=== PATIENT | male | born 1985 | race Caucasian/White ===

== ENCOUNTER → 2018-01-07 | Outpatient (CLI) | payer BC ==
[~2018-01-07] MED LIST: AMITRIPTYLINE H25 M2 PO; DICLOFENAC SOD50 M1 PO; HYDROCODONE-AP1 EAC6 PO; LISINOPRIL10 MG PO; LYRICA 50 MG50 MG PO; MOBIC15 MG PO; NAPROSYN500 MG PO; NEURONTIN 300300 M1 PO; NORCO 5-325 TA1 EACH PO; RANITIDINE 150150 M1 PO; TRAMADOL 50 MG50 MG PO; ZANAFLEX4 MG PO
--- NOTE | 2018-01-15 15:40 | PAINCON ---
[facility] [address] [place] [address] PAIN MANAGEMENT CONSULTATION Name: DEXTER GOODMAN Room: [facility]#: [id number] Admission: 01/07/18 Attend Phys: Brittanie Walden MD Discharge: Date of : 86 Report #: [id number] THIS REPORT FOR: //name// CC: Brittanie Rose DO DATE OF SERVICE: 01/07/2018 PRIMARY CARE PHYSICIAN: Darin Rose DO. CHIEF COMPLAINT: Low back, bilateral hip pain, left is worse than right. FOLLOWUP HISTORY: The patient is a 32-year-old gentleman who has a history of low back pain involving the lower extremities with paresthesia. He has been seen by Dr. Yo Nolan. This is my first visit with the gentleman. He is having pain that has been problematic for over the last year. Noted some worsening of his pain while he was doing some yard work that resolved. He has been to the Emergency Room in the past because of this. He has had imaging, which indicated that he has lumbar radiculopathy. He tried conservative treatment in the past. He has undergone epidural steroid injections and found them beneficial. At this juncture his pain has returned. He rates it as a 7/10. Over the past 3 weeks, it has escalated. He has been trying conservative medications such as Naprosyn 500 mg b.i.d., gabapentin has also been used in the past. He has undergone physical therapy in the past. Continues to do stretching exercises. Denies any bowel or bladder changes, which are significant. ALLERGIES: PENICILLIN. CURRENT MEDICATIONS: The patient has used diclofenac 50 mg, has used gabapentin 1 p.o. and then I titrated the dose lisinopril 10 mg, tramadol 50 mg 1-2 tabs p.o. q. 8 hours p.r.n. PAST MEDICAL HISTORY: Chronic back pain, hypertension. PAST SURGICAL HISTORY: [place] teeth removal and adenoidectomy. SOCIAL HISTORY: The patient denies use of tobacco. Admits to approximately 1 alcoholic beverage per week. Works as a regional planner. He is working at this juncture. He is , has a . REVIEW OF SYSTEMS: Questionnaire indicates fatigue, weakness, frequent and recurrent headaches, wears eye glasses, joint stiffness and swelling, muscle pain and cramping in the back, difficulty ambulating when pain is present with. A 14-point review point review of systems. Pain impact score 48/70 indicating [facility] [address] [place] [address] PAIN MANAGEMENT CONSULTATION Name: DETXER GOODMAN Room: [facility]#: [id number] Admission: 01/07/18 Attend Phys: Brittanie Walden MD Discharge: Date of : 86 Report #: [id number] moderate to severe interference with daily activities. CT dated 05/18/2017 revealed mild disk bulge at L3 through S1. Spinal canal and neural foramen appear adequate. There is a mild neural foraminal narrowing at L3, L4 and S1. PAIN CLINIC ASSESSMENT: 1. No history of osteoarthritis or rheumatoid arthritis. 2. Height 5 feet 10 inches, weight 209 pounds, BMI is 30. 3. VITAL SIGNS: Blood pressure 136/85, heart rate 72, respiratory rate 16, room air saturation 98%, temperature 98.4. 4. Pain intensity 7/10. 5. Fall risk. The patient has not fallen in the last 3 months. 6. The patient is on blood thinners. The patient is not on a blood thinner. 7. History of hypertension. The patient is not being treated for hypertension. 8. Opioid therapy greater than 6 weeks. The patient is not on opioid therapies. 9. Risk assessment tool. 10. Functional assessment tool. 11. Recreational drug use. The patient denies recreational drug use. 12. Tobacco use. The patient denies use of tobacco. 13. Alcohol use. The patient denies use of alcoholic beverages. PHYSICAL EXAMINATION: GENERAL: The patient is a well-developed white male, appears his stated age. Orientation: The patient is alert and oriented x 3. Affect, the patient's affect is appropriate. HEENT: Normocephalic, atraumatic. Extraocular eye muscles intact. Sclerae are normal. Hearing is within normal limits. Mucous membranes are moist. NECK: Cervical/neck without evidence of bruits or adenopathy. Good range of motion. HEART: Regular rate without murmurs. LUNGS: Clear to auscultation without wheezing, rhonchi or rales. ABDOMEN: Nontender. MUSCULOSKELETAL: Within normal limits without significant scoliosis, kyphosis or lordosis. EXTREMITIES: No clubbing, cyanosis or edema. MUSCULOSKELETAL: Upper extremities. Muscle strength is judged to be 5/5 with normal touch and dermatomal sensation in the upper extremities. Deep tendon reflexes are 1+ at the biceps. Lower extremity negative HARDIK test, positive low back pain with palpate the patient in the low back, lumbar area. No clonus is evident. Walks with some antalgic gait favoring his lower extremity. IMPRESSION: 1. History of symptomatic lumbar radiculopathy. 2. Displacement of lumbar intervertebral disk with radiculopathy. 3. Lumbosacral spondylosis with radiculopathy. [address] [place] [address] PAIN MANAGEMENT CONSULTATION Name: DEXTER GOODMAN Room: [facility]#: [id number] Admission: 01/07/18 Attend Phys: Brittanie Walden MD Discharge: Date of : 86 Report #: [id number] 4. Chronic intractable pain. RECOMMENDATIONS: We discussed the treatment options with the patient. Risks and benefits of an epidural steroid injection were again discussed. Possible complications were reviewed. The patient rates his pain as a 7/10. At this juncture, he would like to proceed with an epidural steroid injection. Risks and benefits were again reviewed. Possible complications, which could include but are not limited to infection, headache, bleeding, nerve trauma, spinal headache, increased muscle soreness, no improvement in pain, worsening of pain were discussed. PROCEDURE NOTE: The patient was placed in the prone position in the procedure room on the fluoroscopy table. His back was sterilely prepped with Betadine. A 0.25% bupivacaine was infiltrated in this area. The target area was identified using fluoroscopy, anterior, posterior as well as lateral viewing. After this area had been identified, 0.25% bupivacaine was infiltrated. A 17-gauge Tuohy with loss of resistance technique was used to gain access to the epidural space. There was no CSF, heme or paresthesia. Total of 80 mg Depo-Medrol, 40 mg triamcinolone and 2 mL of 0.25% bupivacaine was injected. The patient tolerated the procedure well. There were no complications. He remained in the Pain Clinic for an appropriate amount of time. A total of 6 seconds fluoroscopy time was used. Pain decreased from 7 to 3 at the time of departure. He will follow up in the future as needed. We would like to thank you for letting us participate in his care. We hope he continues to improve. <ELECTRONICALLY SIGNED> By: Brittanie Walden MD 01/15/18 1540 [id number] 1241N. Yoni Walden MD /PMT
== END | disposition home or self-care (01) ==
LOC: M.PC 03:03
DX: M51.16 Intervertebral disc disorders with radiculopathy, lumbar region (principal); G89.29 Other chronic pain; M47.27 Other spondylosis with radiculopathy, lumbosacral region; I10 Essential (primary) hypertension; Z88.0 Allergy status to penicillin; Z98.890 Other specified postprocedural states; Z79.899 Other long term (current) drug therapy; Z79.891 Long term (current) use of opiate analgesic

== ENCOUNTER → 2018-02-20 | Outpatient (CLI) | payer BC ==
--- NOTE | 2018-03-19 13:42 | PAINCON ---
[address] [address] PAIN MANAGEMENT CONSULTATION Name: DEXTER GOODMAN [id number] Admission: 02/20/18 Attend Phys: Brittanie Walden MD Discharge: Date of : 86 Report #: [id number] THIS REPORT FOR: //name// CC: Brittanie Rose DATE OF SERVICE: 02/20/2018 FOLLOWUP COMPLAINT: Low back pain with some pain down into both hips. FOLLOWUP HISTORY: The patient is a 33-year-old gentleman who has been seen in the pain clinic in the past because of lumbar radiculopathy. He has undergone epidural steroid injections and gleaned benefits from these. At his last injection a few months ago. He noted significant improvement in his pain and discomfort. At this juncture, he has noted a return of his pain. As you may recall, he travels a lot. He finds that the pain is most problematic when he is awaiting on the tarmac, in an airplane. Also significant amounts of driving can exacerbate his pain and discomfort. He received 100% relief after the last injection for 2 weeks. He denies any new activity, but did note an abrupt return of his pain. He finds that the [place] 5/325 one p.o. p.r.n. has been helpful. He has been walking slowly because of this pain. It has impacted his lability to remain gainfully employed. He rates his pain as a 7/10 at this juncture. Denies any new problems with bowel or bladder function. Still finds that he is mentally sharp. Continues with stretching exercises. He already has undergone physical therapy as you recall. ALLERGIES: PENICILLIN. CURRENT MEDICATIONS: Diclofenac 50 mg, gabapentin 300 mg 1 p.o. and has titrated up to a higher level. Lisinopril 10 mg, tramadol 50 mg 1-2 tablets p.o. every 8 hours p.r.n. PAIN CLINIC ASSESSMENT: 1. The patient has no history of osteoarthritis or rheumatoid arthritis. 2. Height 5 feet 10 inches, weight 199 pounds, BMI is 28. 3. Vital signs, blood pressure 121/71, heart rate 63, respiratory rate 16, room air saturation 97%, temperature 98.6. 4. Pain intensity 7/10. 5. Fall risk. The patient has not fallen in the last 3 months. 6. Blood thinner. The patient is not on a blood thinning agent. 7. History of hypertension. The patient has not been treated for hypertension. 8. Opioid therapy greater than 6 weeks. The patient is not on current opioid regimen. 9. Risk assessment tool. 10. Functional assessment tool. 11. Recreational drug use. The patient [place] [address] PAIN MANAGEMENT CONSULTATION Name: MAXINEDEXTER Jacqueline Room: [facility]#: [id number] Admission: 02/20/18 Attend Phys: Brittanie Walden MD Discharge: Date of : 86 Report #: [id number] 12. Tobacco use. The patient denies use of tobacco. 13. Alcohol. The patient denies use of alcoholic beverages. PHYSICAL EXAMINATION: GENERAL: The patient is a well-developed white male. He appears his stated age. He is alert and oriented x 3. His affect is appropriate. Speech is smooth and fluent. HEAD, EYES, EARS, NOSE, AND THROAT: Normocephalic, atraumatic. Extraocular eye muscles intact. Sclerae nonicteric. Hearing is within normal limits. Mucous membranes are moist. NECK: Without adenopathy or bruits. Good range of motion. HEART: Regular rate, normal S1, S2. LUNGS: Clear to auscultation without rhonchi or rales. ABDOMEN: Nontender. MUSCULOSKELETAL: Without significant scoliosis, kyphosis or lordosis. EXTREMITIES: Upper extremities within normal limits. 5/5 muscle strength with no sensory changes. Muscle strength is judged to be 5/5. Lower extremity, the patient has some pain and discomfort in the lower extremities with pain that is radiating down into the low back area and into his hips bilaterally, particularly in the left L5-S1 distribution. Deep tendon reflexes are +1 at the patellar reflexes. Lower extremity HARDIK test negative, palpable pain in the low back area. Pain in the lumbar area in the L5-S1 paraspinous muscles. No clonus evident. The patient continues and does walk with an antalgic gait favoring his lower extremity because of pain and discomfort in the left leg. IMPRESSION: 1. Symptomatic lumbar radiculopathy. 2. Displacement of lumbar intervertebral disk with radiculopathy. 3. Lumbosacral spondylosis with radiculopathy. 4. Chronic intractable pain. RECOMMENDATIONS: We discussed treatment options with the patient. They include an epidural steroid injection. The possible complication of the procedure include, but are not limited to infection, increased muscle soreness, headache, bleeding, worsening of pain, no improvement in pain, paralysis. The patient feels overall that he is getting plain gleaned significant improvement in the past and continues to travel. He would like to undergo another epidural steroid injection at this juncture. PROCEDURE NOTE: The patient was taken to the procedure room. He was assisted in getting on the examination table. He was placed in the prone position. His back was sterilely prepped with a Betadine solution. 0.25% bupivacaine was infiltrated. Fluoroscopy using the anterior, posterior as well as a lateral approach was used to identify the appropriate placement of the epidural injection. In the left paraspinous area at L5-S1, 0.25% bupivacaine was infiltrated. A 17-gauge Tuohy with loss [place] [address] PAIN MANAGEMENT CONSULTATION Name: MAXINEDEXTER Jacqueline Room: [facility]#: [id number] Admission: 02/20/18 Attend Phys: Brittanie Walden MD Discharge: Date of : 86 Report #: [id number] gain access to the epidural space. There was no CSF, heme or paresthesia. A total of 80 mg Depo-Medrol, 40 mg triamcinolone and 2 mL of 0.25% bupivacaine was injected. The patient tolerated the procedure well. There were no complications. He remained in the pain clinic for an appropriate amount of time. He will follow up in the future as needed. We would like to thank you for letting us participate in his care. Less than 10 seconds fluoroscopy time was used. We would like to thank you for letting us to participate in his care. A script for meloxicam 15 mg 1 p.o. daily and hydrocodone 5/325 one p.o. every 4 to 6 hours total of 45 tablets were released. We would like to thank you for letting us to participate in his care. We hope he continues to improve. <ELECTRONICALLY SIGNED> By: Brittanie Walden MD 03/19/18 1342 0809 1345N. Yoni Walden MD /PMT
== END | disposition home or self-care (01) ==
LOC: M.PC 04:05
DX: M51.16 Intervertebral disc disorders with radiculopathy, lumbar region (principal); M47.27 Other spondylosis with radiculopathy, lumbosacral region; G89.29 Other chronic pain; Z88.0 Allergy status to penicillin; Z79.899 Other long term (current) drug therapy; Z98.890 Other specified postprocedural states; Z79.891 Long term (current) use of opiate analgesic

== ENCOUNTER → 2018-04-03 | Outpatient (CLI) | payer BC ==
--- NOTE | 2018-04-03 15:18 | PAINCON ---
[address] [address] PAIN MANAGEMENT CONSULTATION Name: DEXTER GOODMAN [id number] Admission: 04/03/18 Attend Phys: Brittanie Walden MD Discharge: Date of : 86 Report #: [id number] THIS REPORT FOR: //name// CC: Brittanie Rose DATE OF SERVICE: 04/03/2018 FOLLOWUP COMPLAINT: Continued back and bilateral hip pain. FOLLOWUP HISTORY: The patient is a 33-year-old gentleman who has been seen in the pain clinic for a number of times because of pain involving his low back as well as his hips. He underwent an epidural steroid injection. He gleaned about 100% relief after the injection. The relief started to wane after about 3-4 days. At this juncture, he has continued with some pain relief. He feels it is about 20% better. He continues to have pain. As you recall, he has undergone physical therapy. He has tried a number of nonsteroidal anti-inflammatory medications. He has tried gabapentin. He feels that the [place] medication is helpful, but has noted its shortcomings. He notes that the medication initially were let me know lasting about 4-6 hours, now it is not as long lasting. He feels that the meloxicam is helpful. Sometimes has some discomfort with his stomach. He has had no real problems with GI complaints. He would like to continue with the hydrocodone. He would like other treatment options. The patient continues to travel in his job. He went to [place]. Things went reasonably well during that visit. He notes that prolonged walking, sitting, standing, going from a sitting to a standing, changes in temperature, bending and lifting can worsen his pain and discomfort. Continues to use his medications as well as modalities such as heat, cold, rest to help decrease the discomfort. ALLERGIES: PENICILLIN. CURRENT MEDICATIONS: Mobic 15 mg 1 p.o. daily. Gabapentin, has been used in the past. Lisinopril 10 mg. Tramadol 50 mg 1-2 tablets has been used in the past. Currently, just using hydrocodone and meloxicam. PAIN CLINIC ASSESSMENT: 1. The patient has no history of osteoarthritis or rheumatoid arthritis. 2. Height 5 feet 10 inches, weight 192 pounds, BMI is 27. 3. VITAL SIGNS: Blood pressure 120/87, heart rate 79, respiratory rate 16, room air saturation 98.4. 4. Pain score 7/10. 5. Fall risk. The patient has not fallen in the last 3 months. 6. Blood thinner. The patient is not on a blood thinning agent. 7. History of hypertension. The patient is not being treated for hypertension. 8. Opioid therapy greater than 6 weeks. The patient is [place] [address] PAIN MANAGEMENT CONSULTATION Name: DEXTER GOODMAN Room: [facility]#: [id number] Admission: 04/03/18 Attend Phys: Brittanie Walden MD Discharge: Date of : 86 Report #: [id number] regimen for greater than 6 weeks. 9. Risk assessment tool. 10. Functional assessment tool. 11. Recreational drug use. The patient denies use of recreational drugs. 12. Tobacco: The patient denies use of tobacco. 13. Alcohol: The patient denies use of alcoholic beverages. PHYSICAL EXAMINATION: GENERAL: The patient is a well-developed white male, appears his stated age. He is alert and oriented x 3. His affect is appropriate. Speech is smooth and fluent. HEENT: Normocephalic, atraumatic. Extraocular eye muscles are intact. Sclerae nonicteric. Hearing is within normal limits. Mucous membranes are moist. NECK: Without adenopathy or bruits. Good range of motion. HEART: Regular rate, normal S1, S2. LUNGS: Clear to auscultation without rhonchi or rales. ABDOMEN: Nontender. MUSCULOSKELETAL: Without significant scoliosis, kyphosis or lordosis. EXTREMITIES: Upper extremity strength is judged to be 5/5 for the major muscle groups without sensory changes. Muscle bulk symmetrical lower extremity. The patient has pain and discomfort in the lower portion of his back that continues to radiate down the lower portion of his back and down into his hips bilaterally. This is in the L5-S1 distribution on the left. Has some soreness in the area of the L5-S1 paraspinous muscles. ASSESSMENT: 1. Chronic lumbar radicular pain. 2. Displacement of lumbar intervertebral dis with radiculopathy. 3. Lumbosacral spondylosis with radiculopathy. 4. Chronic intractable pain. RECOMMENDATIONS: We discussed treatment options with the patient. At this juncture, we will continue with the meloxicam. He will take this medication as prescribed. If he notes some increased problems with GI complaints, he will stop taking the medication. We will also consider Lyrica 50 mg 1 p.o. t.i.d. The patient has some consternation in taking it. This consternation is from the possibility of weight gain. He states his is taking it and notes some weight gain. I think at this point it would be reasonable for him to give it a try and note its efficacy. The patient's hydrocodone will be provided 5 mg 1 p.o. b.i.d. We had a long talk with the patient regarding the use of opioid medications, the possibility of addiction as well as the loss of effectiveness of opioid medications over time due to tolerance. At this juncture, he feels that that it would be reasonable to try the medication, he would like to. He will call us if he has any problems with the medications. A script has been [place] [address] PAIN MANAGEMENT CONSULTATION Name: DEXTER GOODMAN Room: [facility]#: [id number] Admission: 04/03/18 Attend Phys: Brittanie Walden MD Discharge: Date of : 86 Report #: [id number] We would like to thank you for letting us participate in his care. We hope he continues to improve. <ELECTRONICALLY SIGNED> By: Brittanie Walden MD 04/03/18 1518 1006 1212N. Yoni Walden MD /nt
== END ==
LOC: M.PC 03:25
DX: M47.27 Other spondylosis with radiculopathy, lumbosacral region (principal); M51.16 Intervertebral disc disorders with radiculopathy, lumbar region; G89.4 Chronic pain syndrome; M54.5 Low back pain

== ENCOUNTER → 2018-05-08 | Outpatient (CLI) | payer BC ==
--- NOTE | 2018-05-23 08:37 | PAINCON ---
[address] [address] PAIN MANAGEMENT CONSULTATION Name: DEXTER GOODMAN Room: [facility]#: [id number] Admission: 05/08/18 Attend Phys: Brittanie Walden MD Discharge: Date of : 86 Report #: [id number] THIS REPORT FOR: //name// CC: Brittanie Rose DATE OF SERVICE: 05/08/2018 FOLLOWUP COMPLAINT: Here for medication renewal. FOLLOWUP HISTORY: The patient is a 33-year-old gentleman who has been followed in the Pain Clinic because of lumbar radicular pain. He has undergone epidural steroid injections. He feels that things are going reasonably well at this juncture. He still has some pain and discomfort and has returned to the Pain Clinic for evaluation and renewal of his medications. He has pain in his low back as well as into both of his hips. He rates his pain as a 6/10 at this juncture. Pain continues to go down into his left leg. He feels that the [place], [place] and Lyrica medications are helpful. He would like to have his medications renewed. Denies any complications from them. He still has pain and discomfort when he sits for a prolonged period of time. As you recall, he travels quite a bit for his job. ALLERGIES: PENICILLIN. CURRENT MEDICATIONS: Mobic 15 mg one p.o. daily, gabapentin has been used in the past, hydrocodone 5/325 one p.o. q. 8 hours p.r.n., pregabalin 50 mg one p.o. t.i.d., amitriptyline 25 mg two tablets at bedtime. PAIN CLINIC ASSESSMENT: 1. The patient does not have a history of osteoarthritis or rheumatoid arthritis. 2. Height 5 feet 10 inches, weight 191 pounds, BMI is 27.4. 3. Vital signs: Blood pressure 133/82, heart rate 72, respiratory rate 16, room air saturation 95%, temperature 98.7. 4. Pain intensity: 03/16. 5. Fall risk: The patient has not fallen in the last 3 months. 6. Blood thinner: The patient is on a blood thinning medication. 7. Hypertension: The patient is not being treated for hypertension. 8. Opioid greater than 6 weeks: The patient has been given a script for opioid medication, 5/325 one tablet b.i.d. 9. Risk assessment tool. 10. Functional assessment tool. 11. Recreational drug use: The patient denies use of recreational drugs. 12. Tobacco: The patient denies use of tobacco. 13. Alcohol: The patient denies [place] [address] PAIN MANAGEMENT CONSULTATION Name: DEXTER GOODMAN Room: [facility]#: [id number] Admission: 05/08/18 Attend Phys: Brittanie Walden MD Discharge: Date of : 86 Report #: [id number] PHYSICAL EXAMINATION: GENERAL: The patient is a well-developed, well-nourished white male. He appears his stated age. He is alert and oriented x 3. His affect is appropriate. Speech is smooth and fluent. HEENT: Normocephalic, atraumatic. Extraocular eye muscles intact. Sclerae nonicteric. Hearing within normal limits. Mucous membranes are moist. NECK: Without adenopathy or bruits. Good range of motion. HEART: Regular rate. Normal S1, S2. LUNGS: Clear to auscultation, without rhonchi or rales. ABDOMEN: Nontender. MUSCULOSKELETAL: Without scoliosis, kyphosis, or lordosis. EXTREMITIES: Upper extremity muscle strength is judged to be 5/5 for the major muscle groups with symmetry and without sensory change. Muscle bulk is normal. Lower extremity muscle strength 5/5 of the major muscle groups in the lower extremities. The patient has some pain and discomfort, which continues to be present in the L5-S1 distribution with some soreness. ASSESSMENT: 1. Chronic lumbar radicular pain, stabilized after epidural steroid injection. 2. Displacement of lumbar intervertebral disc with radiculopathy. 3. Lumbosacral spondylosis with radiculopathy. 4. Chronic intractable pain. RECOMMENDATIONS: We discussed treatment options with the patient. Risks and benefits of medications have been discussed. We will continue with his use of hydrocodone 5 mg p.o. b.i.d. He will also be given a script for amitriptyline 25 mg one p.o. at bedtime and increase to two p.o. at bedtime as needed, meloxicam 15 mg one p.o. daily, pregabalin 50 mg one p.o. t.i.d. The patient will call us if he has any concerns. We would like to thank you for letting us participate in his care. We hope he continues to improve. <ELECTRONICALLY SIGNED> By: Brittanie Walden MD 05/23/18 0837 1536 0039N. Yoni Walden MD /nt
== END ==
LOC: M.PC 02:12
DX: M47.26 Other spondylosis with radiculopathy, lumbar region (principal); M51.16 Intervertebral disc disorders with radiculopathy, lumbar region; G89.4 Chronic pain syndrome; Z79.899 Other long term (current) drug therapy

== ENCOUNTER → 2018-06-12 | Outpatient (CLI) | payer BC, OTHER ==
--- NOTE | 2018-06-13 17:38 | PAINCON ---
[address] [address] PAIN MANAGEMENT CONSULTATION Name: DEXTER GOODMAN Room: [facility]#: [id number] Admission: 06/12/18 Attend Phys: Brittanie Walden MD Discharge: Date of : 86 Report #: [id number] THIS REPORT FOR: //name// CC: Brittanie Rose DATE OF SERVICE: 06/12/2018 FOLLOWUP HISTORY: The patient is a 33-year-old gentleman who has been followed in the Pain Clinic. As you recall, he has some lumbar radicular pain. He has undergone epidural steroid injections in the past. These have been successful. He still travels quite a bit. He rides plane from one appointment to the next. He has run out of his pain medications over the last week. He noticed that his pain level increased as a result of this. He has returned today for renewal of his medications. He is not having any complication from the medication. He feels that he is able to perform his job at a higher level with less pain and discomfort. He rates his pain as a 6/10. He has noted some decreased effectiveness of the medications after 4-5 hours of use. He notes that sitting, standing, walking, cold temperatures and activities can exacerbate the pain; whereas, heat and medications are helpful. He would like to have his medications renewed. He keeps his medications in a guarded area. Overall, he feels that things are going reasonably well. ALLERGIES: PENICILLIN. CURRENT MEDICATIONS: Mobic 15 mg daily, gabapentin use in the past, hydrocodone 5/325s one p.o. q. eight hours, Pregabalin 50 mg one p.o. t.i.d., amitriptyline 25 mg at bedtime. PAIN CLINIC ASSESSMENT: 1. The patient does not have a history of osteoarthritis or rheumatoid arthritis. 2. Height 5 feet 10 inches, weight 192 pounds, BMI is 27.6. 3. Vital Signs: Blood pressure is 119/74, heart rate 80, respiratory rate 16, room air saturation 99%, temperature 98.4 4. Pain intensity: 03/16. 5. Fall risk: The patient has not fallen in the last 3 months. 6. Blood thinner: The patient is not on a blood thinning medication. 7. Hypertension: The patient is not being treated for hypertension. 8. Opioid therapy greater than 6 weeks: The patient has received medication from the Pain Clinic. 9. Risk assessment tool. 10. Functional assessment tool. 11. Recreational drug use: The patient denies use of recreational drugs. 12. Tobacco: The patient denies use of tobacco. 13. Alcohol: The patient [place] [address] PAIN MANAGEMENT CONSULTATION Name: DEXTER GOODMAN Room: [facility]#: [id number] Admission: 06/12/18 Attend Phys: Brittanie Walden MD Discharge: Date of : 86 Report #: [id number] PHYSICAL EXAMINATION: GENERAL: The patient is a well-developed, well-nourished white male. He appears his stated age. He is alert and oriented x 3. His speech is fluent. Affect is appropriate. HEENT: Normocephalic, atraumatic. Extraocular eye muscles intact. Sclerae nonicteric. Mucous membranes are moist. NECK: Without adenopathy, bruits, or JVD. Good range of motion. HEART: Regular rate. Normal S1, S2. LUNGS: Clear to auscultation, without rhonchi or rales. ABDOMEN: Nontender, without organomegaly. MUSCULOSKELETAL: Without scoliosis, kyphosis, or lordosis. Muscle strength in the upper extremity judged to be 5/5 for the major muscle groups. Lower extremity muscle strength 5/5 for the major muscle groups. The patient has pain and discomfort, which radiates down the L5-S1 distribution when it is present and notes some soreness in this area. ASSESSMENT: 1. Chronic lumbar radicular pain, improves with epidural steroid injection, but continues to wax and wane. 2. Displacement of the lumbar intervertebral disc with radiculopathy. 3. Lumbosacral spondylosis with radiculopathy. 4. Chronic intractable pain. RECOMMENDATIONS: We discussed treatment options with the patient. We will continue with his current medical regimen. He feels that the medications are helpful, enable him to continue being gainfully employed. He does travel quite a bit. He finds that this medication is helpful, particularly when he has to ride on planes and do quite a bit of traveling. He has had no complication from the medications. He has noted some decreased efficacy of the medications after 4-5 hours. We discussed the possible problems with opioid medications. They could include addiction as well as long-term use can develop tolerance. At this juncture, the patient feels that things are going reasonably well and would like to continue with his medications. A script for his medications of hydrocodone, Lyrica, Elavil and Mobic have been written. We would like to thank you for letting us participate in his care. We hope he continues to improve. <ELECTRONICALLY SIGNED> By: Brittanie Walden MD 06/13/18 1738 [id number]. MD cathryn Manzo
== END ==
LOC: M.PC 06-03 04:27
DX: M47.27 Other spondylosis with radiculopathy, lumbosacral region (principal); M51.16 Intervertebral disc disorders with radiculopathy, lumbar region; G89.4 Chronic pain syndrome; Z79.899 Other long term (current) drug therapy

== ENCOUNTER → 2018-07-10 | Outpatient (CLI) | payer BC, OTHER ==
--- NOTE | 2018-07-21 10:00 | PAINCON ---
[facility] [address] [place] [address] PAIN MANAGEMENT CONSULTATION Name: DEXTER GOODMAN Room: [facility]#: [id number] Admission: 07/10/18 Attend Phys: Brittanie Walden MD Discharge: Date of : 86 Report #: [id number] THIS REPORT FOR: //name// CC: Brittanie Rose DATE OF SERVICE: 07/10/2018 REASON FOR FOLLOWUP: Medication renewal. ____. FOLLOWUP HISTORY: The patient is a 33-year-old gentleman who has been followed in the pain clinic because of chronic pain. As you recall, he has lumbar radiculopathy. He finds that his medications have been helpful. He feels that the morphine and the hydrocodone medication is not lasting as long. He rates it as about a 2.5-3 hour duration. Originally, it was 4-5. He has changed jobs. He is no longer working where he travels. He is standing at home more. 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 He has had a bad couple of weeks. He has noted some upset stomach with use of the Lyrica. Feels that the amitriptyline medication continues to be somewhat helpful and hydrocodone remains efficacious. Continues to use of meloxicam. Overall, things are going reasonably well. ALLERGIES: PENICILLIN. CURRENT MEDICATIONS: Mobic 15 mg daily, Lyrica 50 mg t.i.d., hydrocodone 5/325 one p.o. b.i.d. and Elavil 25 mg at bedtime. PAIN CLINIC ASSESSMENT/PQRS: 1. The patient does not have a history of osteoarthritis or rheumatoid arthritis. 2. Height 5 feet 10 inches, weight 190 pounds and BMI 27. 3. VITAL SIGNS: Blood pressure 143/89, heart rate 89, respiratory rate 16, room air saturation 96% and temperature 98.7 4. Pain score is 7/10. 5. Fall risk. The patient has not fallen in the last 3 months. 6. Blood thinner. The patient is not on a blood thinning medication. 7. Hypertension. The patient has not been treated for hypertension. 8. Opioid therapy greater than 6 weeks. The patient receives medications from one source, the pain clinic. 9. Risk assessment tool. 10. Functional assessment tool, low for use of opioid medication. 11. Recreational drug use. The patient denies. 12. Tobacco: The patient denies use of tobacco. 13. Alcohol: The patient denies use of alcoholic beverages. PHYSICAL EXAMINATION: [place] [address] [place] [address] PAIN MANAGEMENT CONSULTATION Name: DEXTER GOODMAN Room: [facility]#: [id number] Admission: 07/10/18 Attend Phys: Brittanie Walden MD Discharge: Date of : 86 Report #: [id number] GENERAL: The patient is a well-developed, well-nourished white male. Appears his stated age. He is alert and oriented x 3. His affect is appropriate. Speech is fluent. HEENT: Normocephalic, atraumatic. Extraocular eye muscles intact. Sclerae nonicteric. Mucous membranes are moist. NECK: Without adenopathy, bruits, or JVD. Good range of motion. HEART: Regular rate. S1, S2. LUNGS: Clear to auscultation without rhonchi or rales. ABDOMEN: Nontender, without organomegaly. Bowel sounds present. MUSCULOSKELETAL: Without scoliosis, kyphosis or lordosis. Upper extremity muscle strength is judged to be 5/5 for the major muscle groups in the upper extremity with symmetry. Low back: The patient has pain and discomfort in low back area. Has some pain that radiates down into the L5-S1 dermatomal distribution. Notes some soreness in this area. ASSESSMENT: 1. Chronic lumbar radicular pain improved with epidural steroid injection and continues to wax and wane depending on the weather. 2. Displacement of lumbar intervertebral disk with radiculopathy. 3. Lumbosacral spondylosis with radiculopathy. 4. Chronic intractable pain. RECOMMENDATIONS: We discussed the treatment options with the patient. They include use of opioid medications. He states that he is noting a decrease length of time for pain relief using hydrocodone. We explained to the patient the problems with opioid medications. Now that they can cause dependency. We also discussed the possible problems with them because of tolerance. The patient has been noted that his pain medicine has no longer last for 5 hours, but now is about 2.5 hours. We explained to him the physiology of this problem. I explained to him that there is no level of opioids of his body while not at some point find enough satisfying. We will have the patient try Gralise instead of Lyrica. We will note that efficacy. Hopefully, finds that this is more beneficial with less GI complaint. We have written his scripts for amitriptyline 25 mg at bedtime, hydrocodone 5/325 b.i.d., Meloxicam 15 mg daily. The patient will try Gralise instead of Lyrica. We would like to thank you for letting us participate in his care. We hope he continues to improve. <ELECTRONICALLY SIGNED> By: Brittanie Walden MD 07/21/18 1000 0 [id number]. Yoni Walden MD /nori
== END ==
LOC: M.PC 04:47
DX: M47.27 Other spondylosis with radiculopathy, lumbosacral region (principal); M51.16 Intervertebral disc disorders with radiculopathy, lumbar region; G89.4 Chronic pain syndrome

== ENCOUNTER → 2018-08-07 | Outpatient (CLI) | payer OTHER ==
--- NOTE | 2018-08-20 16:28 | PAINCON ---
[address] [address] PAIN MANAGEMENT CONSULTATION Name: DEXTER GOODMAN [id number] Admission: 08/07/18 Attend Phys: Brittanie Walden MD Discharge: Date of : 86 Report #: [id number] THIS REPORT FOR: //name// CC: Brittanie Rose DATE OF SERVICE: 08/07/2018 CHIEF COMPLAINT: Low back pain. FOLLOWUP HISTORY: The patient is a 33-year-old gentleman who has been followed in the Pain Clinic because of chronic back pain. He has returned for renewal of his medications. He feels that his pain continues to be problematic. He rates it as a 7/10. He has history of lumbar radiculopathy. He has undergone epidural steroid injections. He states that he is going to see a new back surgeon in the [facility] in a few weeks; this physician is a back specialist, the name he could not recall. He feels that the Mobic medication remains helpful. He tried the Gralise, which is a slow-release gabapentin medication. He is not sure that he noted a significant improvement in that. Given that it did not provide much benefit, he elects to continue with Lyrica. He feels that that medication is somewhat helpful. Overall, he feels that things are going reasonably well. 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 His customer is taking him to [place] for a ball game. He has no complication from the medications. He notes that the hydrocodone medication remains efficacious. It is about 2-4 hours of improvement with use of the medication. ALLERGIES: PENICILLIN. CURRENT MEDICATIONS: Mobic 15 mg, Lyrica 50 mg one p.o. t.i.d., hydrocodone 5/325s one b.i.d., Elavil 25 mg at bedtime. PAIN CLINIC ASSESSMENT/PQRS: 1. The patient does not have a history of osteoarthritis or rheumatoid arthritis. 2. Height 5 feet 10 inches, weight 188 pounds, BMI is 27. 3. Vital signs: Blood pressure 130/70, heart rate 92, respiratory rate 16, room air saturation 97%, temperature 98.3. 4. Pain intensity: 7/10. 5. Fall risk: The patient has not fallen in the last 3 months. 6. Blood thinner: The patient is on a blood thinning medication. 7. Hypertension: The patient has been treated for hypertension in the past but is not at this juncture. 8. Opiates greater than 6 weeks: The patient receives his medication from one source, the Pain Clinic. 9. Risk assessment tool: [place] [address] PAIN MANAGEMENT CONSULTATION Name: DEXTER GOODMAN Room: [facility]#: [id number] Admission: 08/07/18 Attend Phys: Brittanie Walden MD Discharge: Date of : 86 Report #: [id number] 10. Functional assessment tool. 11. Recreational drug use: The patient denies. 12. Tobacco: The patient denies use of tobacco. 13. Alcohol: The patient denies use of alcoholic beverages. PHYSICAL EXAMINATION: GENERAL: The patient is a well-developed, well-nourished white male. He appears his stated age. He is alert and oriented x 3. His affect is appropriate. Speech is fluent. HEENT: Normocephalic, atraumatic. Extraocular eye muscles intact. Sclerae nonicteric. The patient wears glasses. NECK: Without adenopathy, bruits, or JVD. Good range of motion. HEART: Regular rate. S1, S2. LUNGS: Clear to auscultation, without rales or crackles. MUSCULOSKELETAL: Without scoliosis, kyphosis or lordosis. Upper extremity muscle strength judged 5/5 for the major muscle groups in the upper extremity with symmetry. No sensory changes. LOW BACK: The patient has some discomfort in the low back area. He has pain that radiates down into the L5-S1 dermatomal distribution. He notes continued pain in this area for which he takes his medications. ASSESSMENT: 1. Chronic lumbar radicular pain, improved with epidural steroid injections in the past. Pain waxes and wanes. 2. Displacement of lumbar intervertebral disc with radiculopathy. 3. Lumbar spondylosis with radiculopathy. 4. Chronic intractable pain. RECOMMENDATIONS: We discussed treatment options with the patient. At this juncture, he feels that the Gralise medication did not provide significant benefit. He will continue with his medications of Lyrica, [place], amitriptyline, and Mobic. Risks and benefits of opioid medications again have been reviewed. The patient is aware that 72,000 people last year as a result of opioid use. We spoke with the patient regarding the possibility of less effectiveness of the opioid secondary to tolerance. He feels that things are going reasonably well. He keeps his medications in a guarded area. We would like to thank you for letting us participate in his care. We hope he continues to improve. <ELECTRONICALLY SIGNED> By: Brittanie Walden MD 08/20/18 1628 [id number] [id number]. MD cathryn Manzo
== END ==
LOC: M.PC 02:48
DX: M47.26 Other spondylosis with radiculopathy, lumbar region (principal); G89.4 Chronic pain syndrome

== ENCOUNTER → 2018-09-04 | Outpatient (CLI) | payer OTHER ==
--- NOTE | ~2018-09-04 | PAINCON ---
[address] [address] PAIN MANAGEMENT CONSULTATION Name: DEXTER GOODMAN [id number] Admission: 09/04/18 Attend Phys: Brittanie Walden MD Discharge: Date of : 86 Report #: [id number] THIS REPORT FOR: //name// CC: Brittanie Rose DO DATE OF SERVICE: 09/04/2018 FOLLOWUP COMPLAINT: "Pain seems to be working pretty well, I think we got the combination about right." HISTORY OF PRESENT ILLNESS: The patient is a 33-year-old gentleman who has been followed in the Pain Clinic because of chronic back pain. He has returned for renewal of his medications. He feels that the medications are working reasonably well. He rates his pain as a 3-4. He does not have any real problems with the medications. Sometimes, he notes that the amitriptyline medication can be a little bit sedating. At that point, he skips taking the medication for a few days and feels that that is really helping. He has had no complications from this. He feels that he has had pretty good months. 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 He feels that the quality time that he gets with his family is well worth it. His young daughter, who is about 9-10 months old, is now beginning to walk, she is doing well. Overall, things are going reasonably well and he is happy with his status in life at this juncture. ALLERGIES: PENICILLIN. CURRENT MEDICATIONS: Mobic 15 mg, Lyrica 50 mg 1 p.o. t.i.d., hydrocodone 5/325 one p.o. b.i.d., Elavil 25 mg at bedtime. PAIN CLINIC ASSESSMENT AND PQRS: 1. The patient is not being treated for osteoarthritis or rheumatoid arthritis. 2. Height 5 feet 10 inches, weight 188 pounds, BMI is 26.9. 3. Vital signs: Blood pressure 121/75, heart rate 76, respiratory rate 16, room air saturation 95%, temperature 98.6. 4. Pain intensity: 4/10. 5. Fall history: The patient has not fallen. It has been icy outside secondary to snowing. 6. Blood thinner: The patient is not on a blood thinning medication. 7. Hypertension: The patient is not being treated for hypertension at this point, but was in the past. 8. Opioid use greater than 6 weeks: The patient receives his medications from one source from the Pain Clinic. 9. Risk assessment tool: Low for opioid use. 10. [place] [address] PAIN MANAGEMENT CONSULTATION Name: DEXTER GOODMAN Room: [facility]#: [id number] Admission: 09/04/18 Attend Phys: Brittanie Walden MD Discharge: Date of : 86 Report #: [id number] 11. Recreational drug use: The patient denies use of recreational drugs. 12. Tobacco: The patient has never smoked. 13. Alcohol: The patient denies use of alcoholic beverages. PHYSICAL EXAMINATION: GENERAL: The patient is a well-developed, well-nourished, white male. He appears his stated age. He is alert and oriented x 3. His affect is appropriate. Speech is fluent. HEENT: Normocephalic, atraumatic. Extraocular eye muscles intact. Sclerae nonicteric. The patient is wearing his glasses. NECK: Without adenopathy, bruits, or JVD. Good range of motion. HEART: Regular rate. S1 and S2. LUNGS: Clear to auscultation without rales or rhonchi. MUSCULOSKELETAL: Without scoliosis, kyphosis or lordosis. Upper extremity muscle strength is judged to be 5/5 in the upper extremity. No sensory changes. The patient is carrying his daughter who is in a basket. The patient has some discomfort in the low back area, but rates his pain as a 4/10, less pain radiating down the L5-S1 dermatomal distribution. ASSESSMENT: 1. Chronic lumbar radicular pain, improved with epidural steroid injections in the past. Pain continues to improve. He feels that it is at a reasonable rate at this juncture with his current medical regimen. 2. Displacement of lumbar intervertebral disk with history of radiculopathy. 3. Lumbar spondylosis with radiculopathy. 4. Chronic intractable pain treated with complex medical management. RECOMMENDATIONS: We discussed treatment options with the patient. At this juncture, we will continue with his current medications. He feels that his medications are working reasonably well. He does not have any problems with them. He is able to think clearly. He is aware of the possible complications of opioid use, which would include addiction as well as less effectiveness secondary to intolerance. Overall, the patient feels that things are going well. He keeps his medications in a guarded area. A script for his medications of [place] 5/325, amitriptyline 25 mg, Mobic 15 mg, and Lyrica 50 mg t.i.d. have all been rewritten. He will call us if he has any concerns. We would like to thank you for letting us participate in his care. By: [id number] [id number]. Yoni Walden MD /nori
== END ==
LOC: M.PC 03:44
DX: M51.16 Intervertebral disc disorders with radiculopathy, lumbar region (principal); M47.26 Other spondylosis with radiculopathy, lumbar region; I10 Essential (primary) hypertension; Z79.891 Long term (current) use of opiate analgesic; Z88.0 Allergy status to penicillin

== ENCOUNTER → 2018-09-25 | Outpatient (CLI) | payer OTHER ==
--- NOTE | ~2018-09-25 | PAINCON ---
[facility] [address] [place] [address] PAIN MANAGEMENT CONSULTATION Name: DEXTER GOODMAN Room: [facility]#: [id number] Admission: 09/25/18 Attend Phys: Brittanie Walden MD Discharge: Date of : 86 Report #: [id number] THIS REPORT FOR: //name// CC: Brittanie Rose CHIEF COMPLAINT: Here for medication renewal. FOLLOWUP HISTORY: The patient is a 33-year-old gentleman who has been followed in the Pain Clinic because of chronic pain involving his low back. He has returned today for renewal of the medications. He is having no problems with them. They are working reasonably well. He has no new complaints. He has had low back pain, which has been problematic for a number of years. 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 They have a young daughter who is about 16 months. He is keeping his medications out of the reach of child. He and his both feel that things are going reasonably well. He has found that the medication is helpful, not having bad side effects. ALLERGIES: PENICILLIN. MEDICATIONS: Mobic 15 mg, Lyrica 50 mg 1 p.o. t.i.d., hydrocodone 5/325 one p.o. b.i.d., Elavil 25 mg at bedtime. PAIN CLINIC ASSESSMENT AND PQRS: 1. The patient is not being treated for osteoarthritis or rheumatoid arthritis. 2. Height 5 feet 10 inches, weight 182 pounds, BMI is 26. 3. Vital signs: Blood pressure is 136/71, heart rate 65, respiratory rate 16, room air saturation 95%. Temperature 98.5. 4. Pain intensity 4/10. IMPRESSION: 1. Fall history: The patient has not fallen in the last 3 months. 2. Blood thinner. The patient is not on a blood thinning medication. 3. Hypertension. The patient is not being treated for hypertension. 4. Opioids greater than 6 weeks. The patient receives his medication from one source, the Pain Clinic. 5. Risk assessment tool, low for opioid use. 6. Functional assessment tool. 7. Recreational drug use. The patient denies use of recreational drug use. 8. Tobacco: The patient denies use of tobacco. 9. Alcohol: The patient denies use of alcoholic beverages. PHYSICAL EXAMINATION: GENERAL: The patient is a well-developed, well-nourished white male. Appears his stated age. He is alert and oriented x 3. Affect is appropriate. Speech is fluent. HEENT: Normocephalic, atraumatic. Extraocular [place] [address] PAIN MANAGEMENT CONSULTATION Name: DEXTER GOODMAN Room: [facility]#: [id number] Admission: 09/25/18 Attend Phys: Brittanie Walden MD Discharge: Date of : 86 Report #: [id number] nonicteric. Mucous membranes are moist. He is wearing glasses. NECK: Without adenopathy, JVD, bruits. Good range of motion. HEART: Regular rate. S1, S2. LUNGS: Clear to auscultation without rhonchi or rales. MUSCULOSKELETAL: Without significant scoliosis, kyphosis or lordosis. The patient's upper extremity muscle strength is judged to be 5/5 for the major muscle groups. Sensory is without changes. Low back: The patient has pain and discomfort radiating down into his low back area in the L5-S1 dermatomal distribution. Rates his muscle strength as 5/5 on the left and 5-/5 on the contralateral side. ASSESSMENT: 1. Chronic lumbar radicular pain improved with epidural steroid injection in the past. The patient continues to feel that things are going reasonably well and would like to continue medical regimen. Displacement of lumbar intervertebral disk with history of radiculopathy. 2. Lumbar spondylosis with radiculopathy. 3. Chronic intractable pain treated with complex medical management. RECOMMENDATIONS: We discussed treatment options with the patient. He is aware of possible complications with long-term use of opioids. They include addiction as well as tolerance. The patient feels that things are going reasonably well. Finds the medication enabled him to be gainfully employed. He is able to engage in much more activity than he was without their use. Keeps them in a well-confined area away from his child. A script for his medications has been rewritten. We would like to thank you for letting us participate in his care. We hope he continues to improve. By: [id number]. Yoni Walden MD /nt
== END ==
LOC: M.PC 01:38
DX: M47.26 Other spondylosis with radiculopathy, lumbar region (principal); M51.16 Intervertebral disc disorders with radiculopathy, lumbar region; G89.4 Chronic pain syndrome; Z79.899 Other long term (current) drug therapy

== ENCOUNTER → 2018-10-23 | Outpatient (CLI) | payer OTHER ==
--- NOTE | ~2018-10-23 | PAINCON ---
[address] [address] PAIN MANAGEMENT CONSULTATION Name: DEXTER GOODMAN Room: [facility]#: [id number] Admission: 10/23/18 Attend Phys: Brittanie Walden MD Discharge: Date of : 87 Report #: [id number] THIS REPORT FOR: //name// CC: Brittanie Rose DATE OF SERVICE: 10/23/2018 CHIEF COMPLAINT: "Medications are helping with the low back pain." FOLLOWUP HISTORY: The patient is a 33-year-old gentleman who has been followed in the Pain Clinic. He has pain in his low back area. He has undergone epidural steroid injection because of the lumbar radicular pain. He finds that his current medications of Lyrica, hydrocodone, Elavil and meloxicam are beneficial. He feels that the pain is a little worse this week. The weather has been problematic. It has been rainy. Temperature outside is in the 20s. Overall, things are going reasonably well and he is here for renewal of his medications. 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 As you recall, he has a young daughter who is 16 months old or thereabouts; she is here with him, she appears to be well cared for. He states he keeps his medications in an area that is out of the reach of the child. ALLERGIES: PENICILLIN. CURRENT MEDICATIONS: Mobic 15 mg, Lyrica 50 mg one p.o. t.i.d., hydrocodone 5/325 one p.o. b.i.d., Elavil 25 mg at bedtime. PAIN CLINIC ASSESSMENT/PQRS: 1. The patient is not being treated for osteoarthritis or rheumatoid arthritis. 2. Height 5 feet 10 inches, weight 176 pounds, BMI is 25. 3. Vital signs: Blood pressure 131/75, heart rate 99, respiratory rate 16, room air saturation 95%, temperature 98.6. 4. Fall history: The patient has not fallen in the last 3 months. 5. Pain score: 4/10. 6. Blood thinner: The patient is not on a blood thinning medication. 7. Hypertension: The patient is not being treated for hypertension. 8. Opioids greater than 6 weeks: The patient receives his medications from [facility] source, Pain Clinic. 9. Risk assessment tool: Low for opioid use. 10. Functional assessment tool. 11. Recreational drug use: The patient denies use of recreational drugs. 12. Tobacco: The patient denies use of tobacco. 13. Alcohol: The patient denies use of alcoholic beverages. PHYSICAL EXAMINATION: GENERAL: The patient is a well-developed, well-[place] [address] PAIN MANAGEMENT CONSULTATION Name: DEXTER GOODMAN Room: [facility]#: [id number] Admission: 10/23/18 Attend Phys: Brittanie Walden MD Discharge: Date of : 87 Report #: [id number] appears his stated age. He is alert and oriented x 3. Affect is appropriate. Speech is fluent. HEENT: Normocephalic, atraumatic. Extraocular eye muscles intact. Sclerae nonicteric. Mucous membranes are moist. The patient is wearing glasses. NECK: Without adenopathy or JVD. HEART: Regular rate, S1 and S2. LUNGS: Clear to auscultation, without rhonchi or rales. MUSCULOSKELETAL: Without scoliosis, kyphosis, or lordosis. Upper extremity muscle strength is judged to be 5/5 for the major muscle groups in the upper extremity without sensory changes. Low back: The patient has pain and discomfort, pain still radiates down to his back in the L5-S1 dermatomal distribution. He has some muscle strain in the lower extremity, judged as 5/5 on the left and 5-/5 on the contralateral side right. ASSESSMENT: 1. Chronic lumbar pain, improved with epidural steroid injection in the past. The patient feels that things are still going reasonably well. 2. 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 3. Lumbar spondylosis with radiculopathy. 4. Chronic intractable pain, treated with complex medical management. RECOMMENDATIONS: We discussed treatment options with the patient. Risks and benefits of opioid medications were again reviewed. Possible complication of opioids, which could be dependency as well as less effectiveness secondary to development of tolerance was discussed. The patient would like to continue with his medication. He feels that things are going reasonably well. He is able to think clearly. He continues to work on his [employer] business in conjunction with his . We would like to thank you for letting us participate in his care. We hope he continues to improve. By: [id number]. Yoni Walden MD /nt
== END ==
LOC: M.PC 08:40
DX: M47.26 Other spondylosis with radiculopathy, lumbar region (principal); G89.4 Chronic pain syndrome; Z79.899 Other long term (current) drug therapy

== ENCOUNTER → 2018-11-20 | Outpatient (CLI) | payer OTHER ==
[~2018-11-20] MED LIST changes: +BUSPIRONE HCL10 MG PO; +CLONAZEPAM 0.50.5 M1 PO
--- NOTE | 2018-11-25 09:15 | PAINCON ---
[facility] [address] [place] [address] PAIN MANAGEMENT CONSULTATION Name: DEXTER GOODMAN Room: [facility]#: [id number] Admission: 11/20/18 Attend Phys: Brittanie Walden MD Discharge: Date of : 87 Report #: [id number] THIS REPORT FOR: //name// CC: Brittanie Rose DATE OF SERVICE: 11/20/2018 FOLLOWUP COMPLAINT: Here for medication renewal. FOLLOWUP HISTORY: The patient is a 33-year-old gentleman. As you recall, he does have his lumbar radicular pain. He has undergone epidural steroid injections. Those have been beneficial. Continues to have pain, which is problematic and improves with use of Lyrica and hydrocodone. Feels that Meloxicam is beneficial and continues to be beneficial. He has returned today for renewal of his medications. Weather is still waxing and waning. He does note some increased pain and discomfort with changes in the weather. 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 Overall, he feels that things are going reasonably well. He does take his medication as prescribed. We would like to have his medications renewed. ALLERGIES: PENICILLIN. MEDICATIONS: Mobic 15 mg, Lyrica 50 mg t.i.d., hydrocodone 5/325 one p.o. b.i.d., Elavil 25 mg at bedtime. PAIN CLINIC ASSESSMENT/PQRS: 1. The patient is not being treated for osteoarthritis or rheumatoid arthritis. 2. Height 5 feet 10 inches, weight is 184 pounds, BMI is 26. 3. Pain intensity. 4. Vital signs: Blood pressure 132/74, heart rate 114, respiratory rate 16, room air saturation 97%, temperature 97.8. Pain intensity 4/10. 5. History: The patient has not fallen in the last 3 months. 6. Blood thinner. The patient is not on a blood thinning medication. 7. Hypertension. The patient is not being treated for hypertension. 8. Opioids greater than 6 weeks. The patient refuses medication from one source, the pain clinic. 9. Risk assessment tool, low for opioid use. 10. Functional assessment tool. 11. Recreational drug use. The patient denies use of recreational drugs. 12. Tobacco: The patient denies use of tobacco. 13. Alcohol: The patient denies use of alcoholic beverages. PHYSICAL EXAMINATION: [place] [address] PAIN MANAGEMENT CONSULTATION Name: DEXTER GOODMAN Room: [facility]#: [id number] Admission: 11/20/18 Attend Phys: Brittanie Walden MD Discharge: Date of : 87 Report #: [id number] GENERAL: The patient is a well-developed, well-nourished white male. Appears his stated age. He is alert and oriented x 3. Affect is appropriate. Speech is fluent. HEENT: Normocephalic, atraumatic. Extraocular eye muscles intact. Sclerae nonicteric. Mucous membranes are moist. NECK: Without adenopathy or JVD. HEART: Regular rate. S1, S2. LUNGS: Clear to auscultation without rhonchi or rales. MUSCULOSKELETAL: Without significant scoliosis, kyphosis or lordosis. Upper extremity muscle strength is judged to be 5/5 for the major muscle groups in the upper extremity without sensory changes. Low back: The patient has pain and discomfort which does radiate and is problematic in the L5-S1 dermatomal distribution. The patient's muscle strength is judged to be 5/5 for the upper extremity and -5 for the lower extremity with pain on the right side. IMPRESSION: 1. Chronic pain, lumbar area improved with epidural steroid injection in the past. The patient finds his current medications are helpful. 2. History of displacement of lumbar intervertebral disk with radiculopathy. 3. Lumbar spondylosis with radiculopathy. 4. Chronic intractable pain treated with complex medical management. RECOMMENDATIONS: We discussed treatment options with the patient. We will continue with his current medications. We explained that opioid medications can be helpful, sometimes they can be less effective as when develops tolerance. Chronic use of medications can cause dependence. Overall, the patient feels that things are going reasonably well. These medications help him to engage in activities of daily life. He had a lot more trouble without their use. Keeps his medications in a guarded area. We would like to thank you for letting us participate in his care. We hope he continues to improve. <ELECTRONICALLY SIGNED> By: Brittanie Walden MD 11/25/18 0915 [id number]. Yoni Walden MD /nori
== END ==
LOC: M.PC 05:26
DX: M47.26 Other spondylosis with radiculopathy, lumbar region (principal); G89.4 Chronic pain syndrome

== ENCOUNTER → 2018-12-18 | Outpatient (CLI) | payer OTHER ==
--- NOTE | 2018-12-23 09:30 | PAINCON ---
[address] [address] PAIN MANAGEMENT CONSULTATION Name: DEXTER GOODMAN Room: [facility]#: [id number] Admission: 12/18/18 Attend Phys: Brittanie Walden MD Discharge: Date of : 87 Report #: [id number] THIS REPORT FOR: //name// CC: Brittanie Rose DATE OF SERVICE: 12/18/2018 CHIEF COMPLAINT: Low back pain, which has been problematic for years. FOLLOWUP HISTORY: The patient is a 33-year-old gentleman who has been followed in the pain clinic because of chronic pain. He has some pain in the lumbar area. He has undergone epidural steroid injections and gleaned some benefit from these. He finds that his medications continued to be helpful. States that he saw his Dr. Rose. The doctor performed OMT procedure. A quick motion cause some popping sensation. It was felt that there was some release in his back and that he felt better as a result of that. He feels that his medications are helpful. 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 He has had no complication with his medications. States that on some occasions when his pain is not as problematic. He may not take his medications for a day or so. ALLERGIES: PENICILLIN. CURRENT MEDICATIONS: Mobic 15 mg 1 p.o., Lyrica 50 mg t.i.d., hydrocodone 5/325 one p.o. b.i.d., Elavil 25 mg at bedtime. PAIN CLINIC ASSESSMENT/PQRS: 1. The patient is not being treated for rheumatoid arthritis or osteoarthritis. 2. Height 5 feet 10 inches, weight 175 pounds, BMI is 25.1. 3. Blood pressure 115/70, heart rate 105, respiratory rate 16, room air saturation 95%, temperature 97.9. 4. Pain intensity 6/10. 5. Fall history: The patient has not fallen in the last 3 months. 6. Blood thinner. The patient is not on a blood thinning medication. 7. Hypertension. The patient is not being treated for hypertension. 8. Opiates greater than 6 weeks. The patient receives his medications from one source, the pain clinic. 9. Risk assessment too low for opioid use. 10. Functional assessment tool. 11. Recreational drug use. The patient denies use of recreational drugs. 12. Tobacco: The patient denies use of tobacco. 13. Alcohol: The patient denies use of alcoholic beverages other than on rare occasion. PHYSICAL EXAMINATION: [address] [place] [address] PAIN MANAGEMENT CONSULTATION Name: DEXTER GOODMAN Room: [facility]#: [id number] Admission: 12/18/18 Attend Phys: Brittanie Walden MD Discharge: Date of : 86 Report #: [id number] GENERAL: The patient is a well-developed, well-nourished white male. Appears his stated age. He is alert and oriented x 3. His affect is appropriate. Speech is fluent. HEAD, EYES, EARS, NOSE, AND THROAT: Normocephalic, atraumatic. Extraocular eye muscles intact. Sclerae nonicteric. Mucous membranes are moist. NECK: Without adenopathy or JVD. HEART: Regular rate. S1, S2. LUNGS: Clear to auscultation, again without rhonchi or rales. MUSCULOSKELETAL: Without significant scoliosis, kyphosis or lordosis. Upper extremity muscle strength in upper back without significant discomfort. Muscle strength in the upper arms, 5/5 for the upper extremity without sensory changes. Low back: The patient has some pain and discomfort in the low back area. He does have pain that radiates down the L5-S1 dermatomal distribution, which can be problematic. The patient did not take his pain medicine today. Notes is slight increase in pain at this juncture. Lower extremity muscle strength is judged to be 5-/5 in the lower extremity on the right. IMPRESSION: 1. Chronic pain, improved with epidural steroid injection in the past. 2. Complex medical regimen to help control pain. 3. History of lumbar intervertebral disk with radiculopathy. 4. Lumbar spondylosis with radiculopathy. 5. Chronic intractable pain treated with hydrocodone, Lyrica and amitriptyline. RECOMMENDATIONS: We discussed treatment options with the patient. At this juncture, we will continue with his medications. The patient did not take his hydrocodone medication today. States that he was somewhat to hurry. He has not taken it. States that there might be a few 2-3 days where he does not take the hydrocodone medication because things are not very problematic. Did have a drug test, which was negative for hydrocodone. States that was the reason why he did not have medications system at that point. Overall, things are going reasonably well and would like to continue with his medications. A script for a renewal of his medications of gabapentin 50 mg 1 p.o. t.i.d., hydrocodone 5 one p.o. b.i.d. and amitriptyline 25 mg 2 tablets at bedtime. We would like to thank you for letting us to participate in his care. We hope he continues to improve. <ELECTRONICALLY SIGNED> By: Brittanie Walden MD 12/23/18 0930 [id number]. Yoni Walden MD /CHARIS
== END ==
LOC: M.PC 04:55
DX: M47.26 Other spondylosis with radiculopathy, lumbar region (principal); M51.16 Intervertebral disc disorders with radiculopathy, lumbar region; G89.29 Other chronic pain; Z88.0 Allergy status to penicillin; Z79.899 Other long term (current) drug therapy; Z79.891 Long term (current) use of opiate analgesic

== ENCOUNTER → 2019-01-15 | Outpatient (CLI) | payer OTHER ==
--- NOTE | ~2019-01-15 | PAINCON ---
[address] [address] PAIN MANAGEMENT CONSULTATION Name: DEXTER GOODMAN Room: [facility]#: [id number] Admission: 01/15/19 Attend Phys: Brittanie Walden MD Discharge: Date of : 87 Report #: [id number] THIS REPORT FOR: //name// CC: Brittanie Rose DO DATE OF SERVICE: 01/15/2019 CHIEF COMPLAINT: Low back pain. FOLLOWUP HISTORY: The patient is a 33-year-old gentleman who has been followed in the pain clinic. As you recall, he suffers from lumbar radiculopathy. He has undergone epidural steroid injections. They have been helpful. Continues to have pain and discomfort. Finds that low doses of hydrocodone have been beneficial. He is able to engage in activities with less pain and discomfort. Feels that the nonsteroidal anti-inflammatory medications, Mobic are helpful. Feels that Lyrica has been beneficial as well. Finds that the Elavil at bedtime helps with sleep. He has been doing more active at this juncture. He feels that he is feeling better. Because of his improved condition, he feels that he may overdo it a little bit. At this juncture, he is contemplating having a massage. He has wondered whether or not massages would be a reasonable or problematic. ALLERGIES: PENICILLIN. MEDICATIONS: Mobic 15 mg 1 p.o. daily, Lyrica 50 mg t.i.d., hydrocodone 5/325 one p.o. b.i.d., Elavil 25 mg at bedtime. PAIN CLINIC ASSESSMENT/PQRS: 1. The patient has not been treated for rheumatoid arthritis or osteoarthritis. 2. Height 5 feet 10 inches, weight 176 pounds, BMI is 25.4. 3. Blood pressure 134/83, heart rate 91, respiratory rate 16, room air saturation 100%, temperature 98.2. 4. Pain intensity 01/14. 5. Fall history: The patient has not fallen in the last 3 months. 6. Blood thinner. The patient is not on a blood thinning medication. 7. Hypertension. The patient is not being treated for hypertension. 8. Opioids greater than 6 weeks. The patient [facility]. 9. Risk assessment tool, low for opioid use. 10. Recreational drug use. The patient denies use of recreational drugs. 11. Tobacco: The patient denies use of tobacco. 12. Alcohol: The patient denies use of alcoholic beverages [place] [address] PAIN MANAGEMENT CONSULTATION Name: DEXTER GOODMAN Room: [facility]#: [id number] Admission: 01/15/19 Attend Phys: Brittanie Walden MD Discharge: Date of : 87 Report #: [id number] PHYSICAL EXAMINATION: GENERAL: The patient is well-developed, well-nourished white male. Appears his stated age. He is alert and oriented x 3. Affect is appropriate. Speech is slow. HEENT: Normocephalic, atraumatic. Extraocular eye muscles intact. Sclerae nonicteric. Mucous membranes moist. NECK: Without adenopathy or JVD. HEART: Regular rate. S1, S2. LUNGS: Clear to auscultation without rhonchi. MUSCULOSKELETAL: Without significant scoliosis, kyphosis or lordosis. Upper extremity muscle strength is judged to be 5/5 for the major muscle groups in the upper extremity. Lower extremity, the patient's muscle strength is 5-/5. Has some pain in the L5-S1 dermatomal distribution. IMPRESSION: 1. Chronic pain improves after epidural steroid injection in the past. 2. Complex medical regimen with opioids. 3. History of lumbar intervertebral disk with radiculopathy. 4. Lumbar spondylosis with radiculopathy. 5. Chronic intractable pain treated with hydrocodone, Lyrica and amitriptyline. RECOMMENDATIONS: We discussed treatment options with the patient. We will continue with his medications. A script has been provided for his medications of Elavil, meloxicam and hydrocodone. The patient is considering having a massage with his . They both are considering massage therapy. They were hoping that this would not be problematic and exacerbate the pain. I do not think that would. Oftentimes patients felt that massage is beneficial. He will call us if he has any concerns. We would like to thank you for letting us participate in his care. We hope he continues to improve. By: [id number]. Yoni Walden MD /nori
== END ==
LOC: M.PC 04:50
DX: M47.26 Other spondylosis with radiculopathy, lumbar region (principal); G89.29 Other chronic pain; Z88.0 Allergy status to penicillin; Z79.891 Long term (current) use of opiate analgesic

== ENCOUNTER → 2019-02-12 | Outpatient (CLI) | payer OTHER ==
--- NOTE | ~2019-02-12 | PAINCON ---
[facility] [address] [place] [address] PAIN MANAGEMENT CONSULTATION Name: DEXTER GOODMAN Room: [facility]#: [id number] Admission: 02/12/19 Attend Phys: Brittanie Walden MD Discharge: Date of : 87 Report #: [id number] THIS REPORT FOR: //name// CC: Brittanie Rose DATE OF SERVICE: 02/12/2019 CHIEF COMPLAINT: Things are going relatively well. I do not have any problems. I have been able to get up and walk. Things are in a good balance. No new complaint. HISTORY: The patient is a 34-year-old gentleman who has been followed in the Pain Clinic. As you recall, he suffers from lumbar radiculopathy. He has undergone epidural steroid injections. Overall, he feels that things are going reasonably well with his current medical regimen. He is not having any complications. He is taking the medication as prescribed. No problems with GI discomfort with use of Mobic. ALLERGIES: PENICILLIN. CURRENT MEDICATIONS: Mobic 15 mg 1 p.o. daily, Lyrica 50 mg t.i.d., hydrocodone 5/325 one p.o. b.i.d., Elavil 25 mg at bedtime. PAIN CLINIC ASSESSMENT/PQRS: 1. The patient is not being treated for osteoarthritis or rheumatoid arthritis. 2. Height 5 feet 10 inches, weight 175 pounds, BMI is 25. 3. Vital Signs: Blood pressure 141/82, heart rate 73, respiratory rate 16, room air saturation 96%, temperature 98.3. 4. Pain intensity /10. 5. Fall History: The patient has not fallen in the last 3 months. 6. Blood thinner. The patient is not on a blood thinning medication. 7. Hypertension. The patient is not being treated for hypertension. 8. Opioids greater than 6 weeks. The patient receives medications from one source, the Pain Clinic. 9. Risk assessment tool, low for opioid use. 10. Recreational drug use. The patient denies use of recreational drugs. 11. Tobacco: The patient denies use of tobacco. 12. Alcohol: The patient denies other than social use of alcoholic beverages. PHYSICAL EXAMINATION: GENERAL: The patient is a well-developed, well-nourished white male. Appears his stated age. He is alert and oriented x 3. His affect is appropriate. Speech is fluent. HEENT: Normocephalic, atraumatic. Extraocular eye muscles intact. The patient [place] [address] PAIN MANAGEMENT CONSULTATION Name: DEXTER GOODMAN Room: [facility]#: [id number] Admission: 02/12/19 Attend Phys: Brittanie Walden MD Discharge: Date of : 86 Report #: [id number] NECK: Without adenopathy or JVD. HEART: Regular rate, S1, S2. LUNGS: Clear to auscultation. MUSCULOSKELETAL: Without significant scoliosis, kyphosis or lordosis. Upper extremity muscle strength 5/5. Lower extremity muscle strength is judged to be 5/5. The patient has improved pain in the L5-S1 dermatomal distribution. IMPRESSION: 1. Chronic pain, improved with epidural steroid injections and stable at this juncture. 2. Complex medical regimen using opioids. 3. History of lumbar intervertebral disk with radiculopathy. 4. Lumbar spondylosis with radiculopathy. 5. Chronic intractable pain treated with hydrocodone, Lyrica and amitriptyline. RECOMMENDATIONS: We discussed treatment options with the patient. He feels that his medications are working reasonably well. He does not have any complications. He would like to continue with the medications. A script for his medications has been rewritten for the next month. He will continue with the Lyrica 50 mg 1 p.o. t.i.d., hydrocodone 5 mg 1 p.o. b.i.d. and Elavil 25 mg at bedtime in conjunction with meloxicam 15 mg daily. We would like to thank you for letting us participate in his care. We hope he continues to improve. By: 0824 [id number]. Yoni Walden MD /nori
== END ==
LOC: M.PC 05:10
DX: G89.29 Other chronic pain (principal); M47.26 Other spondylosis with radiculopathy, lumbar region; Z88.0 Allergy status to penicillin; Z88.8 Allergy status to other drugs, medicaments and biological substances; Z79.891 Long term (current) use of opiate analgesic

== ENCOUNTER → 2019-03-12 | Outpatient (CLI) | payer OTHER ==
[~2019-03-12] MED LIST changes: +HYDROCODON-ACE1 EAC7 PO
--- NOTE | ~2019-03-12 | PAINCON ---
[address] [address] PAIN MANAGEMENT CONSULTATION Name: DEXTER GOODMAN Room: [facility]#: [id number] Admission: 03/12/19 Attend Phys: Brittanie Walden MD Discharge: Date of : 86 Report #: [id number] THIS REPORT FOR: //name// CC: Brittanie Rose DATE OF SERVICE: 03/12/2019 CHIEF COMPLAINT: Pain in the low back area. HISTORY: The patient is a 34-year-old gentleman, who has been followed in the Pain Clinic because of chronic pain. As you may recall, he has had back pain with lumbar radiculopathy. He has undergone a number of epidural steroid injections in the low back area. He has found those to be beneficial. At this juncture, he finds that his medications are being controlled with medical management. He feels that things are going reasonably well. He rates his pain as a 4/5. He has taken the medication as prescribed. As you may recall the pain he has been suffering has been ongoing for years. He has returned today with the thought of having his medications renewed. He feels that the Lyrica medication, hydrocodone, Elavil, and Mobic, all in combination are beneficial. He still has pain and discomfort when he is sitting with cold temperatures, walking, sitting, standing, and finds it sometimes use of heat, cold, and rest can be helpful. He has returned today for renewal of his medications. He keeps his medications in a guarded area. He is not having any problems with them. He is able to think clearly. ALLERGIES: PENICILLIN. CURRENT MEDICATIONS: Mobic 15 mg 1 p.o. daily, Lyrica 50 mg t.i.d., hydrocodone 5/325 one p.o. b.i.d., Elavil 25 mg at bedtime. PAIN CLINIC ASSESSMENT AND PQRS: 1. The patient is not being treated rheumatoid arthritis or osteoarthritis. 2. Height 5 feet 10 inches, weight 172 pounds, BMI is 24.7. 3. Vital signs: Blood pressure 131/86, heart rate 68, respiratory rate 16, room air saturation 95%, temperature 98.4. 3. Pain intensity: 4/10. 4. Fall history: The patient has not fallen in the last 3 months. 5. Blood thinner: The patient is not on a blood thinning medication. 6. Hypertension: The patient is not being treated for hypertension. 7. Opioids greater than 6 weeks: The patient receives his medications from one source from Pain Clinic. 8. Risk assessment tool: Low for opioid use. 9. Recreational drug use: The patient denies use of recreational drugs. 10. Tobacco: Denies use of tobacco. 11. Alcohol: The patient denies use [place] [address] PAIN MANAGEMENT CONSULTATION Name: DEXTER GOODMAN Room: [facility]#: [id number] Admission: 03/12/19 Attend Phys: Brittanie Walden MD Discharge: Date of : 87 Report #: [id number] occasion. PHYSICAL EXAMINATION: GENERAL: The patient is a well-developed, well-nourished, white male. Appears his stated age. He is alert and oriented x 3. His affect is appropriate. Speech is fluent. HEENT: Normocephalic, atraumatic. Extraocular eye muscles intact. Sclerae nonicteric. Mucous membranes are moist. NECK: Without adenopathy or JVD. The patient has pain and discomfort that continues to radiate down into his back, it involves the left leg. Numbness and tingling in the L5-S1 dermatomal distribution. HEART: Regular rate without adenopathy or JVD. MUSCULOSKELETAL: Without significant scoliosis, kyphosis or lordosis. IMPRESSION: 1. Chronic pain involving the low back area in the L5 dermatomal distribution. 2. Complex medical regimen using opioids to help control pain. 3. History of lumbar intervertebral disk with radiculopathy. 4. Lumbar spondylosis with radiculopathy. 5. Chronic intractable pain, treated with hydrocodone, Lyrica, and amitriptyline. RECOMMENDATIONS: We discussed treatment options with the patient. The patient is aware that opioid medications can be helpful. They can be problematic in certain people. The patient is aware of the news of people have as a result of opioid overdoses. The patient has been using his medications as prescribed. He keeps them in a controlled environment. He does have a young daughter. He feels that these medications are helpful. He continues to be engaged in working with less pain and discomfort. He is aware that the pain medications may become less effective over a period of time because of development of tolerance. He is being provided an additional month of medication. I will be out of town when his next refill is due. He will call us if he has any concerns. We would like to thank you for letting us participate in his care. We hope he continues to improve. By: [id number]. Yoni Walden MD /nt
== END ==
LOC: M.PC 05:34
DX: M47.26 Other spondylosis with radiculopathy, lumbar region (principal); G89.4 Chronic pain syndrome; Z88.0 Allergy status to penicillin; Z79.899 Other long term (current) drug therapy; Z79.891 Long term (current) use of opiate analgesic

== ENCOUNTER → 2019-04-30 | Outpatient (CLI) | payer OTHER ==
--- NOTE | ~2019-04-30 | PAINCON ---
[address] [address] PAIN MANAGEMENT CONSULTATION Name: DEXTER GOODMAN Room: [facility]#: [id number] Admission: 04/30/19 Attend Phys: Brittanie Walden MD Discharge: Date of : 86 Report #: [id number] THIS REPORT FOR: //name// CC: Brittanie Rose DATE OF SERVICE: 04/30/2019 CHIEF COMPLAINT: Here for medication renewal. HISTORY: The patient is a 34-year-old gentleman who has been followed in the pain clinic because of chronic pain. He does have lumbar radiculopathy. He has undergone epidural steroid injections in the past and gleaned some benefit from these. He at this juncture is being helped with his pain by Lyrica, hydrocodone, amitriptyline, and meloxicam. Overall, he feels his medications are helpful. He has had no complication from their use. The patient's air conditioning failed about 1 week ago. The weather was in the 100-110 degree category. Overall, things are going reasonably well. He would like to have his medications renewed. ALLERGIES: PENICILLIN. CURRENT MEDICATIONS: Mobic 15 mg 1 daily, Lyrica 50 mg t.i.d., hydrocodone 5/325 1 p.o. b.i.d., Elavil 25 mg at bedtime. PAIN CLINIC ASSESSMENT AND PQRS: 1. The patient is not being treated with rheumatoid arthritis or osteoarthritis. 2. Height 5 feet 10 inches, weight 173 pounds, BMI is 24. 3. Vital signs: Blood pressure 130/80, heart rate 67, respiratory rate 16, room air saturation is 95%, temperature 98.4. 4. Pain intensity is about 4/10. 5. Fall history. The patient has not fallen in the last 3 months. 6. Blood thinner. The patient is not on a blood thinning medication. 7. Hypertension. The patient is not being treated for hypertension. 8. Opioids greater than 6 weeks. The patient receives medication from one source, the pain clinic. 9. Risk assessment tool, low for opioid use. 10. Recreational drug use. The patient denies use of recreational drugs. 11. Tobacco: The patient denies use of tobacco. 12. Alcohol: The patient denies use of alcoholic beverages other than social. PHYSICAL EXAMINATION: GENERAL: The patient is a well-developed, well-nourished, white male. Appears his stated age. He is alert and oriented x 3. [place] [address] PAIN MANAGEMENT CONSULTATION Name: DEXTER GOODMAN Room: [facility]#: [id number] Admission: 04/30/19 Attend Phys: Brittanie Walden MD Discharge: Date of : 86 Report #: [id number] Speech is fluent. HEENT: Normocephalic, atraumatic. Extraocular eye muscles intact. Sclerae nonicteric. Mucous membranes are moist. NECK: Without adenopathy or JVD. HEART: Regular rate. ABDOMEN: Nontender. Bowel sounds present. BACK: The patient has some pain that radiates down the lower portion of his back with numbness and tingling in the L5-S1 dermatomal distribution on the left. MUSCULOSKELETAL: Without significant scoliosis, kyphosis or lordosis. IMPRESSION: 1. Chronic pain involving low back area in the L4-L5 dermatomal distribution. 2. Complex medical management, using opioid medications to help control the pain. 3. History of lumbar intervertebral disk with radiculopathy. 4. Lumbar spondylosis with radiculopathy. 5. Chronic intractable pain, treated with hydrocodone, Lyrica and amitriptyline. RECOMMENDATIONS: We discussed treatment options with the patient. At this juncture, we will continue with his medications. He feels the medications are helpful. He is aware that opioid medications can be helpful for some folks. He is aware that some patients can develop a dependence. He does not feel he is having a problem with dependence. He feels medications enable him to engage in activities he would not be able to. He is able to think clearly. He and his are contemplating enlarging her family. He is here for renewal of his medications. A script for his complex medical management using opioids has been rewritten. He will continue with the hydrocodone 5/325 1 p.o. b.i.d. A 2 months' prescription of this medication has been provided. The patient will also continue with Lyrica 50 mg 1 p.o. t.i.d. and Elavil 2, 25 mg tablets at bedtime as well as meloxicam 15 mg daily. He will monitor his GI tract for problems with aspirin medications. He will call us if he has any concerns. We would like to thank you for letting us participate in his care. We hope he continues to improve. By: [id number]. Yoni Walden MD /CHARIS
== END ==
LOC: M.PC 05:08
DX: M47.26 Other spondylosis with radiculopathy, lumbar region (principal); G89.29 Other chronic pain; Z79.891 Long term (current) use of opiate analgesic

== ENCOUNTER → 2019-06-18 | Outpatient (CLI) | payer OTHER ==
[~2019-06-18] MED LIST changes: +BUTRANS1 EAC1 TRANSDERM
--- NOTE | ~2019-06-18 | PAINCON ---
[address] [address] PAIN MANAGEMENT CONSULTATION Name: DEXTER GOODMAN Room: [facility] Danielle.#: [id number] Admission: 06/18/19 Attend Phys: Brittanie Walden MD Discharge: Date of : 86 Report #: [id number] THIS REPORT FOR: //name// CC: Brittanie Rose DATE OF SERVICE: 06/18/2019 PRIMARY CARE PHYSICIAN: Darin Rose DO CHIEF COMPLAINT: "The hydrocodone medications are not as effective as they have bene, I would like to try another medication to see if they would be more helpful." HISTORY: The patient is a 34-year-old gentleman who has been followed in the pain clinic because of chronic pain. As you recall, he suffers from lumbar radiculopathy. He has undergone epidural steroid injections. These have been beneficial in the past. Continues to have some pain. He finds that Lyrica and meloxicam in conjunction with amitriptyline and hydrocodone were beneficial initially. He feels that the medication is not as effective and would like to try another medication to see whether or not there could be more pain benefit from another agent. He feels that he is building up tolerance. Rates his pain as a 7/10 at this point. Notes the pain is worse with activities, walking, sitting, standing and feels that the medications are helpful with heat as well as rest. ALLERGIES: PENICILLIN. CURRENT MEDICATIONS: Mobic 15 mg 1 p.o. daily, Lyrica 50 mg, hydrocodone 5/325 one p.o. b.i.d., Elavil 25 mg at bedtime. PAIN CLINIC AND PQRS: 1. The patient is not being treated for rheumatoid arthritis or osteoarthritis. 2. Height 5 feet 10 inches, weight 177 pounds, BMI is 25.5. 3. Vital Signs: Blood pressure 115/75, heart rate 80, respiratory rate 16, room air saturation is 96. 4. Temperature 98.2. 5. Pain intensity 04/15. 6. Fall history: The patient has not fallen in the last 3 months. 7. Blood thinner. The patient is not on a blood thinning medication. 8. Opioids greater than 6 weeks. The patient receives medication from one source, the pain clinic. 9. Risk assessment tool, low for opioid use. 10. Recreational drug use. The patient denies. 11. Tobacco: The patient denies use of tobacco. 12. Alcohol. The patient denies use [place] [address] PAIN MANAGEMENT CONSULTATION Name: DEXTER GOODMAN Room: [facility]#: [id number] Admission: 06/18/19 Attend Phys: Brittanie Walden MD Discharge: Date of : 86 Report #: [id number] occasion. PHYSICAL EXAMINATION: GENERAL: The patient is a well-developed, well-nourished white male. Appears his stated age. He is alert and oriented x 3. His youngest daughter is with him. HEENT: Normocephalic, atraumatic. Extraocular eye muscles intact. Sclerae nonicteric. Mucous membranes are moist. The patient is wearing glasses. NECK: Without adenopathy or JVD. HEART: Regular rate. ABDOMEN: Nontender. Bowel sounds present. MUSCULOSKELETAL: The patient has pain and discomfort, which is problematic and radiates down into the L5-S1 dermatomal distribution involving his left leg. The patient without significant scoliosis, kyphosis or lordosis. IMPRESSION: 1. Chronic pain involving the low back area in the L4-L5 dermatomal distribution. 2. Complex medical management using opioid medications to help control pain. 3. History of lumbar intervertebral disk with radiculopathy. 4. Lumbar spondylosis with radiculopathy. 5. Chronic intractable pain treated with hydrocodone, Lyrica and amitriptyline. RECOMMENDATIONS: We discussed treatment options with the patient. At this juncture, we will try Butrans patch to the skin every 7 days, 10 mg. Hopefully, he will find this medication more efficacious. A script for 1 month of the medication has been prescribed. We will continue with the medication should he find this is beneficial. Hopefully, things will continue to improve. The patient works, continue to stay as active as possible. He will call us if he has any concerns. He will monitor his GI tract for irritation secondary to nonsteroidal anti-inflammatory medications. We may consider increasing his Elavil medication at night from 25 to 50 mg should he need more assistance with sleep at night. We would like to thank you for letting us participate in his care. A script for his medications have been written. We would like to thank you for letting us participate in his care. By: [id number]. Yoni Walden MD /CHARIS
== END ==
LOC: M.PC 05:25
DX: Z76.0 Encounter for issue of repeat prescription (principal); G89.29 Other chronic pain; M51.16 Intervertebral disc disorders with radiculopathy, lumbar region; M47.26 Other spondylosis with radiculopathy, lumbar region; Z88.0 Allergy status to penicillin; Z79.899 Other long term (current) drug therapy; Z79.891 Long term (current) use of opiate analgesic

== ENCOUNTER → 2019-07-16 | Outpatient (CLI) | payer OTHER ==
[~2019-07-16] MED LIST changes: +BUPRENORPHINE HC2 MG SUBLING; +HYDROXYZINE HCL25 M2 PO
--- NOTE | 2019-07-29 09:09 | PAINCON ---
[address] [address] PAIN MANAGEMENT CONSULTATION Name: DEXTER GOODMAN [id number] Admission: 07/16/19 Attend Phys: Brittanie Walden MD Discharge: Date of : 86 Report #: [id number] THIS REPORT FOR: //name// CC: Brittanie Rose DATE OF SERVICE: 07/16/2019 CHIEF COMPLAINT: "Here for medication renewal. The Butrans patch is helpful, but the tape is irritating my skin and causing redness." HISTORY: The patient is a 34-year-old gentleman who has been followed in the pain clinic. As you may recall, he has a history of chronic low back pain. Epidural steroid injections in the past have been helpful. At this point, he continues to have pain, which is problematic. He is treated with Lyrica, meloxicam and amitriptyline. He has used hydrocodone in the past. He found that this was beneficial. He felt that he would like to try another modality of pain control. He was provided a script for Butrans 10 mcg. It was changed on a weekly basis. He has noted a redness associated with use of the patch. It is causing some irritation in his skin. He feels this is somewhat intolerable. He would like to try oral buprenorphine sublingual. He feels that this might be helpful and would like to give it a try. Overall, things are going reasonably well. ALLERGIES: PENICILLIN AND BUTRANS PATCH CAUSE SKIN IRRITATION. CURRENT MEDICATIONS: Mobic 15 mg 1 p.o. daily, Lyrica 50 mcg, hydrocodone 5/325 one p.o. b.i.d., Elavil 25 mg at bedtime. PAIN CLINIC ASSESSMENT AND PQRS: 1. The patient is not being treated for rheumatoid arthritis. He does have some arthritic changes in his back. 2. Height 5 feet 10 inches, weight 185 pounds, BMI is 27. 3. Vital Signs: Blood pressure 152/77, heart rate 82, respiratory rate 16, room air saturation 98% and temperature 98.3. 4. Pain intensity 10. 5. Fall history: The patient has not fallen in the last 3 months. 6. Blood thinner. The patient is not on a blood thinning medication. 7. Opioids greater than 6 weeks. The patient receives medication from one source, the pain clinic. 8. Risk assessment tool, low for opioid use. 9. Recreational drug use. The patient denies. 10. Tobacco: The patient denies use of tobacco. 11. Alcohol. The patient denies use of alcoholic beverages, [place] [address] PAIN MANAGEMENT CONSULTATION Name: DEXTER GOODMAN Room: [facility]#: [id number] Admission: 07/16/19 Attend Phys: Brittanie Walden MD Discharge: Date of : 86 Report #: [id number] PHYSICAL EXAMINATION: GENERAL: The patient is a well-developed, well-nourished white male. Appears his stated age. He is alert and oriented x 3. His affect is appropriate. Speech is fluent. HEENT: Normocephalic, atraumatic. Extraocular eye muscles intact. He is unaccompanied. The patient is wearing glasses. NECK: Without adenopathy or JVD. The patient has redness in the area where he has Butrans patch was. The skin is irritated from adhesive on the patch. NECK: Without adenopathy or JVD. HEART: Regular rate. ABDOMEN: Nontender. Bowel sounds present. MUSCULOSKELETAL: The patient has muscle strength in the upper extremity is 5/5 for the major muscle groups in the upper extremity. The patient has pain and discomfort in the L5-S1 dermatomal distribution on his left leg. The patient without significant scoliosis, kyphosis or lordosis. IMPRESSION: 1. Chronic pain in the low back area at the L4-L5 dermatomal distribution. 2. Complex medical management using opioids to help control pain. 3. History of lumbar intervertebral disk with radiculopathy. 4. Lumbar spondylosis with radiculopathy. 5. Chronic intractable pain treated with Butrans patch, Lyrica, and amitriptyline. RECOMMENDATIONS: We discussed treatment options with the patient. At this juncture, the patient finds that the irritation of the patch is unacceptable. Feels that the medication has been helpful. He has had some episodes of breakthrough pain, but overall feels that the Butrans patch was working reasonably well. He would like to try an oral preparation of this medication. The hope is that this medication would afford him the same amount of benefit without contact dermatitis/irritation to his skin, which he received by wearing the patch. The risks and benefits of opioid medications were again discussed. Possible complications of their use has been reviewed. The patient is aware that opioid medications can be problematic for some patients. He has taken the medication as prescribed. He is not showing signs of addiction. We will have the patient try buprenorphine 2 mg sublingual t.i.d. and noticed efficacy. He will call if he has any concerns. We would like to thank you for letting us participate in his care. We hope he continues to improve. <ELECTRONICALLY SIGNED> By: Brittanie Walden MD 07/29/19 [id number]. Yoni Walden MD /nt
== END ==
LOC: M.PC 06:00
DX: Z76.0 Encounter for issue of repeat prescription (principal); M47.26 Other spondylosis with radiculopathy, lumbar region; G89.4 Chronic pain syndrome; Z88.0 Allergy status to penicillin; Z79.899 Other long term (current) drug therapy; Z79.891 Long term (current) use of opiate analgesic

== ENCOUNTER → 2019-08-13 | Outpatient (CLI) | payer OTHER ==
--- NOTE | 2019-08-18 10:01 | PAINCON ---
[address] [address] PAIN MANAGEMENT CONSULTATION Name: DEXTER GOODMAN [id number] Admission: 08/13/19 Attend Phys: Brittanie Walden MD Discharge: Date of : 87 Report #: [id number] THIS REPORT FOR: //name// CC: Brittanie Rose DO DATE OF SERVICE: 08/13/2019 CHIEF COMPLAINT: Here for medication renewal. The medication is working very well at this point. HISTORY OF PRESENT ILLNESS: The patient is a 34-year-old gentleman who has been followed in the pain clinic. As you may recall, he suffers from back pain. He has undergone epidural steroid injections in the past. He has found that those were beneficial, but somewhat short-lived. He has had back pain for a number of years. At this point, he has been changed to buprenorphine. He did try the Butrans patch. These were problematic. They caused quite a bit of skin irritation. Overall, he feels that this sublingual dosing is working very well. He feels that he is feeling much better with the new medication. He is able to be more active. He is able to clean his gutters. He is able to perform yard work. Overall, he feels that things are going reasonably well. His was doing reasonably well. She is . He rates his pain today as a 2/10. He has returned today with the hopes of renewing his medication. He does note some increased pain and discomfort with activity such as walking, sitting and standing. Notes that use of his medication, heat, cold and rest are beneficial. He feels that things are about 80% improved at this point and would like to have the medication renewed. ALLERGIES: PENICILLIN, BUTRANS PATCH CAUSE SKIN IRRITATION. CURRENT MEDICATIONS: Mobic 15 mg daily, Lyrica 50 mg, Elavil 25 mg at bedtime, amitriptyline 25 mg at bedtime, which is same as Elavil, buprenorphine 2 mg sublingual t.i.d. PAIN CLINIC ASSESSMENT AND PQRS: 1. The patient is not being treated for rheumatoid arthritis. He does have some arthritic changes in his back. 2. Height 5 feet 10 inches, weight 188 pounds, BMI is 27.7. 3. Vital signs: Blood pressure 154/90, heart rate 75, respiratory rate 16, room air saturation is 97 and temperature 98.4. 4. Pain intensity 2/10. 5. Fall history: The patient has not fallen in the last 3 months. 6. Blood thinner. The patient is not on a blood thinning medication. 7. Hypertension. The patient is not being treated for hypertension. 8. Recreational drugs. The patient denies [place] [address] PAIN MANAGEMENT CONSULTATION Name: MAXINEDEXTER Jacqueline Room: [facility]#: [id number] Admission: 08/13/19 Attend Phys: Brittanie Walden MD Discharge: Date of : 87 Report #: [id number] 9. Risk assessment tool, low for opioid use. 10. Tobacco: The patient denies use of tobacco. He is not vaping. 11. Alcohol. The patient denies use of alcoholic beverages except on rare social occasions. PHYSICAL EXAMINATION: GENERAL: The patient is a well-developed, well-nourished white male. Appears his stated age. He is alert and oriented x 3. His affect is appropriate. Speech is fluent. HEENT: Normocephalic, atraumatic. Extraocular eye muscles intact. Sclerae are nonicteric. Mucous membranes are moist. The patient wears glasses. NECK: Without adenopathy or JVD. HEART: Regular rate. ABDOMEN: Nontender. Bowel sounds present. MUSCULOSKELETAL: The patient has muscle strength in the upper extremities, judged to be 5/5 for the major muscle groups in the upper extremity. The patient has pain and discomfort in lower portion of his back in the L5-S1 dermatomal distribution, particularly on the left leg. The patient is without significant scoliosis, kyphosis or lordosis. IMPRESSION: 1. Chronic pain in the low back area at the L4-L5 dermatomal distribution. 2. Complex medical management using opioids to help control pain. 3. History of lumbar intervertebral disk with radiculopathy. 4. Lumbar spondylosis with radiculopathy. 5. Chronic intractable pain treated with Lyrica, amitriptyline and buprenorphine 2 mg sublingual t.i.d. RECOMMENDATIONS: We will continue with the patient's current medical regimen. Overall, he feels that this is the best combination of the medications he has used so far. He feels the medication is helpful. He has been outside, has been active, doing things around the house. He has been able to clean his gutters. He has been working in his yard. He is not having any problems with these medications. He is able to think clearly. At this point, he has returned today with the hopes of renewing his medications. Overall, he has been 80% improved. He is not having any problems with his medication and is not showing any signs of addiction. We will renew the patient's medication. Hopefully, things will continue to go well for him. A script for amitriptyline 25 mg 1 p.o. b.i.d., hydroxyzine 25 mg 1 p.o. b.i.d., buprenorphine 2 mg sublingual t.i.d. have all been rewritten. The patient will call us if [place] [address] PAIN MANAGEMENT CONSULTATION Name: DEXTER GOODMAN Room: [facility]#: [id number] Admission: 08/13/19 Attend Phys: Brittanie Walden MD Discharge: Date of : 87 Report #: [id number] We would like to thank you for letting us participate in his care. We hope he continues to improve. <ELECTRONICALLY SIGNED> By: Brittanie Walden MD 08/18/19 1001 [id number] 99Brittanie Walden MD /nt
== END ==
LOC: M.PC 05:33
DX: Z76.0 Encounter for issue of repeat prescription (principal); G89.4 Chronic pain syndrome; M47.26 Other spondylosis with radiculopathy, lumbar region; Z88.0 Allergy status to penicillin; Z79.899 Other long term (current) drug therapy; Z79.891 Long term (current) use of opiate analgesic

== ENCOUNTER → 2019-09-10 | Outpatient (CLI) | payer OTHER ==
--- NOTE | ~2019-09-10 | PAINCON ---
[address] [address] PAIN MANAGEMENT CONSULTATION Name: DEXTER GOODMAN Room: [facility]#: [id number] Admission: 09/10/19 Attend Phys: Brittanie Walden MD Discharge: Date of : 87 Report #: [id number] THIS REPORT FOR: //name// CC: Brittanie Rose DO DATE OF SERVICE: 09/10/2019 CHIEF COMPLAINT: Medication working relatively well. HISTORY: The patient is a 34-year-old gentleman who has been followed in the pain clinic. He suffers from chronic back pain. He has had epidural steroid injection in the lumbar area. Finds that his medications at this juncture working reasonably well. He has not had any concern or problem with it. Feels that the buprenorphine sublingual medications have been quite beneficial. He would like to continue with their use. He is happy overall with the way that things are going. His who is is doing reasonably well also. He feels his pain is about 80% improved with his current medical regimen. We will renew his medication. He feels that this medication regimen has done wonders for him. ALLERGIES: PENICILLIN, BUTRANS PATCH CAUSED SKIN IRRITATION. CURRENT MEDICATIONS: Mobic 15 mg, Lyrica 50 mg, Elavil 25 mg at bedtime, buprenorphine 2 mg sublingual t.i.d. PAIN CLINIC ASSESSMENT/PQRS: 1. The patient is not being treated for rheumatoid arthritis. He does have some arthritic changes in his low back area. 2. Height 5 feet 10 inches, weight 185 pounds, BMI is 26.6. 3. Vital signs: Blood pressure 124/75, respiratory rate 16, heart rate 72, saturation is 98%, temperature 98.2. 4. Pain intensity /10. 5. Fall history: The patient has not fallen in the last 3 months. 6. Blood thinner. The patient is not on a blood thinning medication. 7. Hypertension. The patient is not being treated for hypertension. 8. Recreational drugs: The patient denies. 9. Risk assessment tool, low. 10. Tobacco: The patient denies use of tobacco. He is not vaping. 11. Alcohol. The patient denies use of alcoholic beverages except on rare occasions. PHYSICAL EXAMINATION: GENERAL: The patient is a well-developed, well-nourished white male. Appears his stated age. He is alert and oriented x 3. [place] [address] PAIN MANAGEMENT CONSULTATION Name: DEXTER GOODMAN Room: [facility]#: [id number] Admission: 09/10/19 Attend Phys: Brittanie Walden MD Discharge: Date of : 87 Report #: [id number] Speech is fluent. HEENT: Normocephalic, atraumatic. Extraocular eye muscles intact. Sclerae nonicteric. Mucous membranes are moist. NECK: Without adenopathy or JVD. He is wearing his glasses. HEART: Regular rate. ABDOMEN: Nontender. Bowel sounds present. MUSCULOSKELETAL: The patient has strength in the upper extremities 5/5. Lower extremity muscle strength 5/5. The patient does have pain and discomfort, which continues in the low back area in the L5 dermatomal distribution on the left leg. The patient without significant scoliosis, kyphosis or lordosis. IMPRESSION: 1. Chronic pain of the back in the L4-L5 dermatomal distribution as well as the L5-S1 areas. 2. Complex medical management using opioids to help control the pain. 3. History of lumbar intervertebral disk with radiculopathy. 4. Lumbar spondylosis with radiculopathy. 5. Chronic intractable pain treated with his above-mentioned medications of Lyrica, amitriptyline, buprenorphine 2 mg sublingual t.i.d. RECOMMENDATIONS: We discussed treatment options with the patient. The patient is doing reasonably well with his medication. We will continue with that. He does not have any problems with mentation. He does not have any problems with side effects. Overall, the patient is aware that opioid medications can become less effective over time because of development of tolerance. He does not show any signs of tolerance. He has not shown any signs of addiction. He has taken the medication as prescribed. He will call us if he has any concerns. Overall, things are going well and we will continue with his current medical regimen. A script for pregabalin 50 mg 1 p.o. b.i.d. has been written. The patient will also be given a script for buprenorphine 2 mg sublingual t.i.d. The patient will also continue with Elavil 25 mg 2 tablets at bedtime. He will use hydroxyzine should he develop problems with itching. We would like to thank you for letting us participate in his care. We hope he continues to improve. By: [id number]. Yoni Walden MD /nori
== END ==
LOC: M.PC 04:59
DX: M47.26 Other spondylosis with radiculopathy, lumbar region (principal); G89.4 Chronic pain syndrome; Z79.891 Long term (current) use of opiate analgesic

== ENCOUNTER → 2019-10-08 | Outpatient (CLI) | payer OTHER ==
[~2019-10-08] MED LIST changes: +MULTIVITAMINS1 EAC7 PO
--- NOTE | ~2019-10-08 | PAINCON ---
[address] [address] PAIN MANAGEMENT CONSULTATION Name: DEXTER GOODMAN Room: [facility]#: [id number] Admission: 10/08/19 Attend Phys: Brittanie Walden MD Discharge: Date of : 86 Report #: [id number] THIS REPORT FOR: //name// CC: Brittanie Rose DATE OF SERVICE: 10/08/2019 CHIEF COMPLAINT: Here for medications and they are working relatively well. HISTORY: The patient is a 34-year-old gentleman who has been followed in the pain clinic. As you recall, he continues to have chronic back pain. As a result of the chronic back pain he has undergone epidural steroid injections. In spite of that, he continues to have pain, which is problematic. It oftentimes radiates down to the lower portion of his back and down into the posterior portion of his leg. He has found that his current medical regimen of Lyrica, buprenorphine 2 mg t.i.d. are quite helpful. He is able to engage in activities of daily living with less discomfort. He rates his pain as 1-2/10 at this point. His is due to give in about 01/2020. Overall, things are going well. He would like to continue with his medications. ALLERGIES: PENICILLIN, BUTRANS PATCH CAUSE SKIN IRRITATION. CURRENT MEDICATIONS: Mobic 15 mg, Lyrica 50 mg, Elavil 25 mg at bedtime, and buprenorphine 2 mg sublingual t.i.d. PAIN CLINIC ASSESSMENT AND PQRS: 1. The patient is not being treated for osteoarthritis or rheumatoid arthritis. He has pain in the low back area. 2. Height 5 feet 10 inches, weight 187 pounds and BMI is 26.8. 3. Vital Signs: Blood pressure is 123/70, heart rate 70, respiratory rate 16, room air saturation 94%, temperature 98.3. 4. Pain intensity 1-2/10. 5. Fall history: The patient has not fallen in the last 3 months. 6. Blood thinner. The patient is not on a blood thinning medication. 7. Hypertension. The patient is not being treated for hypertension. 8. Opioids. The patient receives medication from [facility], the pain clinic. 9. Risk assessment tool, low for opioid use. 10. Functional assessment tool has been reviewed. 11. Tobacco: The patient denies use of tobacco. The patient is not vaping. 12. Alcohol. The patient denies use of alcoholic beverages. PHYSICAL EXAMINATION: GENERAL: The patient is a well-developed, well-nourished white male. Appears his stated age. He is alert and oriented x 3. His affect is appropriate. [place] [address] PAIN MANAGEMENT CONSULTATION Name: DEXTER GOODMAN Room: [facility]#: [id number] Admission: 10/08/19 Attend Phys: Brittanie Walden MD Discharge: Date of : 86 Report #: [id number] HEENT: Normocephalic, atraumatic. Extraocular eye muscles intact. Sclerae nonicteric. Mucous membranes are moist. NECK: Without adenopathy or JVD. HEART: Regular rate. ABDOMEN: Nontender. Bowel sounds present. MUSCULOSKELETAL: Without significant scoliosis, kyphosis or lordosis. Upper extremity muscle strength 5/5 for the major muscle groups. Lower extremity muscle strength 5/5 for the major muscle groups in the lower extremity. The patient has some pain and discomfort in the L5 dermatomal distribution in the posterior portion of his left leg. IMPRESSION: 1. Chronic pain in the back in the L4-L5 dermatomal distribution as well as the L5-S1 area. 2. Complex medical management to use to help quell the pain. 3. History of lumbar intervertebral disk with radiculopathy. 4. Lumbar spondylosis with radiculopathy. 5. Chronic intractable pain treated with medications of Lyrica, amitriptyline, and buprenorphine. RECOMMENDATIONS: We discussed treatment options with the patient. Overall, he feels that the medications are helpful. He is able to engage in activities with less pain and discomfort. He still note some pain with the cold weather. Walking, sitting, standing and bending can be problematic. He is aware that opioid medications can become less effective as time goes on secondary to development of tolerance. He is keeping his medications in a guarded area. He does have a young daughter. He has been provided a script for buprenorphine 2 mg p.o. sublingual t.i.d. He will also continue with Elavil 25 mg 2 tablets at bedtime. He will call us if he has any concerns. He is aware that 70,000 people as a result of overdose on medications. He does not show any signs of addiction. We would like to thank you for letting us participate in his care. We hope he continues to improve. By: [id number]. Yoni Walden MD /nori
== END ==
LOC: M.PC 09:17
DX: M51.16 Intervertebral disc disorders with radiculopathy, lumbar region (principal); M47.26 Other spondylosis with radiculopathy, lumbar region; G89.4 Chronic pain syndrome; Z88.8 Allergy status to other drugs, medicaments and biological substances; Z79.899 Other long term (current) drug therapy

== ENCOUNTER → 2019-11-05 | Outpatient (CLI) | payer OTHER ==
--- NOTE | ~2019-11-05 | PAINCON ---
[address] [address] PAIN MANAGEMENT CONSULTATION Name: DEXTER GOODMAN Room: [facility]#: [id number] Admission: 11/05/19 Attend Phys: Brittanie Walden MD Discharge: Date of : 86 Report #: [id number] THIS REPORT FOR: //name// CC: Brittanie Rose DO DATE OF SERVICE: 11/05/2019 CHIEF COMPLAINT: The medications are working well and my is going well. HISTORY: The patient is a 34-year-old gentleman who has been followed in the pain clinic. As you may recall, he has a long history of back pain. Epidural steroid injections have been provided in the past. They became less effective. At this point, he has been on a regimen of Lyrica as well as buprenorphine sublingual tablets. He finds that these overall are working reasonably well. Notes that they keep his pain in a reasonable level. He has not shown any signs of complications with the medication. His is scheduled to deliver their new baby in 01/2020. She appears to be doing reasonably well. He would like to continue with his medication. Notes that the medications are helpful with walking, sitting, standing and with other activities. Cold weather somewhat exacerbates his discomfort. ALLERGIES: PENICILLIN, ALSO BUTRANS PATCH WHICH CAUSED SOME SKIN IRRITATION. CURRENT MEDICATIONS: Buprenorphine, Mobic 15 mg, Lyrica 50 mg, Elavil 25 mg at bedtime. PAIN CLINIC ASSESSMENT AND PQRS: 1. The patient is not being treated for osteoarthritis or rheumatoid arthritis. 2. Height 5 feet 10 inches, weight 192 pounds, BMI is 27, respiratory rate is 18, room air saturation is 95%, blood pressure 140/68, heart rate 79, and temperature was 98.2. 3. Pain intensity 10/16. 4. Fall history: The patient has not fallen in the last 3 months. 5. Blood thinner. The patient is not on a blood thinning medication. 6. Hypertension. The patient is not being treated for hypertension. 7. Opioids. The patient is receiving medication from [facility]. 8. Risk assessment tool, low for opioid use. 9. Functional assessment tool has been reviewed. 10. Tobacco: The patient denies use of tobacco. 11. Alcohol: The patient denies use of alcoholic beverages. PHYSICAL EXAMINATION: GENERAL: The patient is a well-developed, well-[place] [address] PAIN MANAGEMENT CONSULTATION Name: DEXTER GOODMAN Room: [facility]#: [id number] Admission: 11/05/19 Attend Phys: Brittanie Walden MD Discharge: Date of : 87 Report #: [id number] his stated age. He is alert and oriented x 3. His affect is appropriate. Speech is fluent. HEENT: Normocephalic, atraumatic. Extraocular eye muscles intact. Sclerae nonicteric. Mucous membranes are moist. NECK: Without adenopathy or JVD. ABDOMEN: Nontender. Bowel sounds present. MUSCULOSKELETAL: Without significant scoliosis, kyphosis or lordosis. Upper extremity muscle strength judged to be 5/5 for the major muscle groups in the upper extremity. The patient has muscle strength in the lower extremity 5/5 for the major muscle groups in the lower extremity. The patient has reasonable comfort at the L4-L5 dermatomal distribution, which is generally where his leg pain is located. IMPRESSION: 1. Chronic pain in low back area in the L4-L5 dermatomal distribution, improved today. 2. Complex medical management used to help control pain with opioids. 3. History of lumbar intervertebral disk with spondylosis. 4. Chronic intractable pain, treated with Lyrica, amitriptyline and buprenorphine 2 mg t.i.d. RECOMMENDATIONS: A script for his medications has been written. He will continue with the medications. He has found that the hydroxyzine can be helpful as well. We would like to thank you for letting us participate in his care. We hope he continues to improve. By: [id number]. Yoni Walden MD /nori
== END ==
LOC: M.PC 04:25
DX: M47.816 Spondylosis without myelopathy or radiculopathy, lumbar region (principal); G89.29 Other chronic pain; Z79.899 Other long term (current) drug therapy; Z88.8 Allergy status to other drugs, medicaments and biological substances; Z88.0 Allergy status to penicillin

== ENCOUNTER → 2019-12-03 | Outpatient (CLI) | payer OTHER ==
--- NOTE | 2019-12-22 09:57 | PAINCON ---
[address] [address] PAIN MANAGEMENT CONSULTATION Name: DEXTER GOODMAN [id number] Admission: 12/03/19 Attend Phys: Brittanie Walden MD Discharge: Date of : 86 Report #: [id number] THIS REPORT FOR: //name// cc: Darin Rose Vincent R. DO ~ THIS REPORT FOR: //name// CC: Brittanie Rose DO DATE OF SERVICE: 12/03/2019 CHIEF COMPLAINT: Medications are working well. Our baby is too soon. HISTORY: The patient is a 34-year-old gentleman who has been followed in the pain clinic because of chronic low back pain. As you may recall, he has undergone epidural steroid injections because of lumbar radicular pain. At this point, he feels that his current medication regimen of Lyrica and buprenorphine continued to be efficacious. The patient feels overall that this medication is working well. He feels that he may be noticing some tolerance too of the medication. Overall, things are going reasonably well. He rates his pain as a 3/10. He is expecting his second child in about 2 months. He is not having any complications from the medications. Overall, they are working well and he would like to continue their use. ALLERGIES: PENICILLIN, BUTRANS PATCH CAUSE SOME SKIN IRRITATION. CURRENT MEDICATIONS: Buprenorphine 2 mg sublingual t.i.d., Mobic 15 mg, Lyrica 50 mg and Elavil 25 mg at bedtime. PAIN CLINIC ASSESSMENT AND PQRS: 1. The patient is not being treated for osteoarthritis or rheumatoid arthritis. 2. Height 5 feet 10 inches, weight 191 pounds, BMI is 27.6. 3. Vital signs: Blood pressure is 130/71, heart rate 91, respiratory rate 16, room air saturation 96%, temperature 98.1. 4. Pain intensity is 3/10. 5. Fall history: The patient has not fallen since we saw him last. 6. Blood thinner. The patient is not on a blood-thinning medication. 7. Hypertension. The patient is not being treated for hypertension. 8. Opioids. The patient received medication from [facility], the pain clinic. 9. Risk assessment tool, low for opioid use. 10. Functional assessment tool has been reviewed. 11. Tobacco: The patient denies use of tobacco. 12. Alcohol. The patient [place] [address] PAIN MANAGEMENT CONSULTATION Name: DEXTER GOODMAN Room: [facility]#: [id number] Admission: 12/03/19 Attend Phys: Brittanie Walden MD Discharge: Date of : 86 Report #: [id number] PHYSICAL EXAMINATION: GENERAL: The patient is a well-developed, well-nourished white male. Appears his stated age. He is alert and oriented x 3. His affect is appropriate. Speech is fluent. HEENT: Normocephalic, atraumatic. Extraocular eye muscles intact. Sclerae nonicteric. Mucous membranes are moist. NECK: Without adenopathy or JVD. ABDOMEN: Nontender. MUSCULOSKELETAL: Without significant scoliosis, kyphosis or lordosis. Upper extremity muscle strength judged to be 5/5 for the major muscle groups in the upper extremity. The patient has some pain and discomfort, which radiates down in the L4-L5 dermatomal distribution and the lateral portion of his leg. IMPRESSION: 1. Chronic low back pain in the area of L4-L5 dermatomal distribution. 2. Complex medical management to help control the pain which includes use of opioids. 3. History of lumbar intervertebral disk with spondylosis. 4. Chronic intractable pain, treated with Lyrica. 5. Improved pain with amitriptyline and buprenorphine 2 mg t.i.d. RECOMMENDATIONS: We discussed treatment options with the patient. The patient feels that his medication regimen is working very well. He is not having any problems with it. He feels that it is not quite as good as it had been in the past, but still he can remain quite functional. Overall, this is the best combination of medications he has used. He and his are expecting their second child in about a month. He keeps his medications in a guarded area. He will call us if he has any concerns. He will continue with Elavil 25 mg 2 tablets at bedtime. He will continue with hydroxyzine 25 mg p.o. b.i.d. for nausea. The patient will also continue with hydroxyzine 25 mg should he have itching or nausea. The patient will also continue with buprenorphine 25 mg sublingual as well as Lyrica 50 mg b.i.d. We would like to thank you for letting us participate in his care. We hope he continues to improve. <ELECTRONICALLY SIGNED> By: Brittanie Walden MD 12/22/19 [id number]. Yoni Walden MD /nt
== END ==
LOC: M.PC 02:14
DX: M54.5 Low back pain (principal); G89.29 Other chronic pain; Z79.891 Long term (current) use of opiate analgesic

== ENCOUNTER → 2019-12-31 | Outpatient (CLI) | payer OTHER ==
--- NOTE | 2020-01-01 09:01 | PAINCON ---
[address] [address] PAIN MANAGEMENT CONSULTATION Name: MAXINEDEXTER Phillips [id number] Admission: 12/31/19 Attend Phys: Brittanie Walden MD Discharge: Date of : 87 Report #: [id number] THIS REPORT FOR: //name// cc: Darin Rose Vincent R. DO ~ THIS REPORT FOR: //name// CC: Brittanie Rose DO The patient was seen on 12/31/[address] Yoni Walden. CHIEF COMPLAINT: Here for medications and my baby is due in about a month. HISTORY: The patient is a 34-year-old gentleman who has been followed in the pain clinic because of chronic pain. As you recall, he has chronic lumbar radicular pain. He has undergone epidural steroid injections in the past. He has undergone a trial on a number of medications, which he finds this current regimen most beneficial. He feels his medications of Lyrica and buprenorphine have been the best to help control pain. He has returned today for renewal of his medication. He and his were expecting a baby in about a month. They are both somewhat nervous because of the COVID-19 infection. They are going around. He has returned today for renewal of the medication. Keeps his medications in a guarded area. ALLERGIES: PENICILLIN, BUTRANS PATCH CAUSED SKIN IRRITATION. CURRENT MEDICATIONS: Buprenorphine 5 mg sublingual t.i.d., Mobic 15 mg, Lyrica 50 mg, Elavil 25 mg at bedtime. PAIN CLINIC ASSESSMENT/PQRS: 1. The patient is not being treated for osteoarthritis or rheumatoid arthritis. 2. Height 5 feet 10 inch, weight 194 pounds, BMI is 28. 3. Vital Signs: Blood pressure is 119/79, heart rate 77, respiratory rate 16, room air saturation 98%. 4. Pain intensity 10/16. 5. Fall history: The patient has not fallen in the last 3 months. 6. Blood thinner. The patient is not on a blood thinning medication. 7. Hypertension. The patient is being treated for hypertension. 8. Opioids. The patient to receive his medication from [facility]. 9. Risk assessment tool, low for opioid use. 10. Functional assessment tool reviewed. 11. Tobacco: The patient denies. 12. Alcohol. The patient [place] [address] PAIN MANAGEMENT CONSULTATION Name: DEXTER GOODMAN Room: [facility]#: [id number] Admission: 12/31/19 Attend Phys: Brittanie Walden MD Discharge: Date of : 87 Report #: [id number] PHYSICAL EXAMINATION: GENERAL: The patient is a well-developed, well-nourished white male, appears his stated age. He is alert and oriented x 3. His affect is appropriate. Speech is fluent. The patient is wearing glasses. NECK: Without adenopathy or JVD. ABDOMEN: Nontender. MUSCULOSKELETAL: Without significant scoliosis, kyphosis or lordosis. Upper extremity muscle strength judged to be 5/5 for the major muscle groups in the upper extremity. The patient has pain and discomfort in lower portion of his back with pain that still radiates down the L4-L5 dermatomal distribution in his leg. IMPRESSION: 1. Chronic low back pain in the area of L4-L5 dermatomal distribution. 2. Complex medical management to help control pain with opioids. 3. History of lumbar intervertebral disk with spondylosis. 4. Chronic intractable pain, treated with Lyrica. 5. Improvement in pain with amitriptyline and buprenorphine 2 mg t.i.d. RECOMMENDATIONS: We discussed treatment options with the patient. Everything seems to be going well. We will continue with his current medical management. He is excited about the new baby. He is somewhat dismay that they will not allow him to enter into the birthing area given the COVID-9 situation. A script for his medications has been written. He will continue with Lyrica 50 mg 1 p.o. b.i.d. He will continue with buprenorphine 2 mg 1 p.o. sublingual t.i.d. He will also continue with amitriptyline. He will use hydroxyzine for itching or discomfort. We would like to thank you for letting us participate in his care. We hope he continues to improve. <ELECTRONICALLY SIGNED> By: Brittanie Walden MD 01/01/20 0901 [id number]. Yoni Walden MD /nt
== END ==
LOC: M.PC 02:45
DX: M54.5 Low back pain (principal); G89.29 Other chronic pain; F11.20 Opioid dependence, uncomplicated; Z87.39 Personal history of other diseases of the musculoskeletal system and connective tissue

== ENCOUNTER → 2020-01-28 | Outpatient (CLI) | payer OTHER ==
--- NOTE | ~2020-01-28 | PAINCON ---
[address] [address] PAIN MANAGEMENT CONSULTATION Name: MAXINEDEXTER Jacqueline [id number] Admission: 01/28/20 Attend Phys: Brittanie Walden MD Discharge: Date of : 87 Report #: [id number] THIS REPORT FOR: //name// cc: Darin Rose Vincent R. DO ~ THIS REPORT FOR: //name// CC: Brittanie Rose DATE OF SERVICE: 01/28/2020 PRIMARY CARE PHYSICIAN: Dr. Darin Rose CHIEF COMPLAINT: "We have had our new baby." HISTORY: The patient is a 34-year-old gentleman who has been followed in the pain clinic because of chronic pain in the low back area. Epidural steroid injections in the past were somewhat helpful. He continues to have pain in spite of that. At this juncture, he finds his use, buprenorphine 5 mg sublingual 3 times a day and Mobic helpful. He has been feeling somewhat anxious. He has been provided BuSpar by his physician. He hopes that this will help with his level of anxiety. He and his are happy that they have a baby. The baby is quite healthy. They were concerned given this atmosphere of COVID-19. He would like to continue with his medications. A script for his medications have been helpful in the past. ALLERGIES: PENICILLIN, BUTRANS PATCH CAUSE SKIN IRRITATION. CURRENT MEDICATIONS: Buprenorphine 5 mg sublingual t.i.d., Mobic 15 mg, Lyrica 50 mg, Elavil 25 mg at bedtime. PAIN CLINIC ASSESSMENT AND PQRS: 1. The patient is not being treated for osteoarthritis or rheumatoid arthritis. 2. Height 5 feet 10 inch, weight 191 pounds, BMI is 27.5. 3. Vital signs: Blood pressure 111/76, heart rate 70, respiratory rate 16, room air saturation 96%, temperature 98.1. 4. Pain intensity 10/16. 5. Fall history: The patient has not fallen in the last 3 months. 6. Blood thinner. The patient is not on a blood thinning medication. 7. Hypertension. The patient is not being treated for hypertension. 8. Opioid use, greater than 6 weeks. The patient receives medication from the pain clinic. 9. Risk assessment tool, low for opioid use. 10. Recreational drug use: The patient denies. 11. Tobacco: [place] [address] PAIN MANAGEMENT CONSULTATION Name: MAXINEDEXTER Jacqueline [facility]: [facility] [id number] Admission: 01/28/20 Attend Phys: Brittanie Walden MD Discharge: Date of : 86 Report #: [id number] 12. Alcohol. The patient denies use of alcoholic beverages. PHYSICAL EXAMINATION: GENERAL: The patient is a well-developed, well-nourished white male. Appears his stated age. He is alert and oriented x 3. His affect is appropriate. Speech is fluent. HEENT: Normocephalic, atraumatic. Extraocular eye muscles intact. Sclerae nonicteric. Mucous membranes are moist. ABDOMEN: Nontender. MUSCULOSKELETAL: The patient without significant scoliosis, kyphosis or lordosis. Upper extremity muscle strength 5/5 for the major muscle groups in the upper extremity. The patient continues to have some pain and discomfort in the lower portion of his back with pain in the L4-L5 dermatomal distribution of his leg. IMPRESSION: 1. Chronic low back pain, L4-L5 dermatomal distribution. 2. Anxiety, now starting BuSpar. 3. History of lumbar intervertebral disk with spondylosis. 4. Chronic intractable pain treated with Lyrica. 5. Improve pain using amitriptyline and buprenorphine 2 mg t.i.d. RECOMMENDATIONS: The patient will continue with the medication. He is happy that his baby has been born. He is doing yoga. He has not had any problems with his medications. He like ____. He is nervous and anxious because of the COVID-19. We would like to thank you for letting us participate in his care. We hope he continues to improve. A script for his medications of amitriptyline, buprenorphine 2 mg sublingual, hydroxyzine and pregabalin 50 mg b.i.d. has been written. By: [id number]. Yoni Walden MD /CHARIS
== END ==
LOC: M.PC 05:43
DX: M47.26 Other spondylosis with radiculopathy, lumbar region (principal); G89.4 Chronic pain syndrome; F41.9 Anxiety disorder, unspecified; Z79.891 Long term (current) use of opiate analgesic; Z79.899 Other long term (current) drug therapy; Z88.0 Allergy status to penicillin

== ENCOUNTER → 2020-02-25 | Outpatient (CLI) | payer OTHER ==
[~2020-02-25] MED LIST changes: +NEURONTIN300 MG PO
--- NOTE | 2020-03-07 09:22 | PAINCON ---
[facility] [address] [place] [address] PAIN MANAGEMENT CONSULTATION Name: MAXINEDEXTER Phillips Room: [facility].#: [id number] Admission: 02/25/20 Attend Phys: Brittanie Walden MD Discharge: Date of : 86 Report #: [id number] THIS REPORT FOR: //name// cc: Darin Rose Vincent R. DO ~ THIS REPORT FOR: //name// CC: Brittanie Rose DATE OF SERVICE: 02/25/2020 CHIEF COMPLAINT: The baby is doing fine. HISTORY: The patient is a 35-year-old gentleman who has been followed in the pain clinic. As you recall, he has back pain. Epidural steroid injections in the past have been helpful. He still had pain, which was problematic. At this juncture, he finds that his medications are buprenorphine 5 mg 3 times daily is helpful. He feels that things are going reasonably well. The baby is doing well. He is worried about COVID-19. He has returned today with desire to continue with his medication regimen. ALLERGIES: PENICILLIN, BUTRANS PATCH CAUSE SKIN IRRITATION. CURRENT MEDICATIONS: Buprenorphine 5 mg sublingual t.i.d., Mobic 15 mg, Lyrica 50 mg, Elavil 25 mg at bedtime. PAIN CLINIC ASSESSMENT AND PQRS: 1. The patient is not being treated for osteoarthritis or rheumatoid arthritis. 2. Height 5 feet 10 inch, weight 193 pounds, BMI is 27. 3. Vital Signs: Blood pressure 126/76, heart rate 67, respiratory rate 16, room air saturation 96%, temperature 99.1. 3. Pain intensity today is 0/10. 4. Fall history: The patient has not fallen in the last 3 months. 5. Blood thinner. The patient is not on a blood thinning medication. 6. Hypertension. The patient is not being treated for hypertension. 7. Opioids greater than 6 weeks. The patient receives medication from one source the pain clinic. 8. Risk assessment tool, low for opioid use. 9. Recreational drug use. The patient denies. 10. Tobacco: The patient denies. 11. Alcohol. The patient denies use of alcoholic beverages. PHYSICAL EXAMINATION: GENERAL: The patient is a well-developed, well-nourished white male. Appears his stated age. He is alert and oriented x 3. [place] [address] PAIN MANAGEMENT CONSULTATION Name: DEXTER GOODMAN Room: [facility]#: [id number] Admission: 02/25/20 Attend Phys: Brittanie Walden MD Discharge: Date of : 87 Report #: [id number] Speech is fluent. HEENT: Normocephalic, atraumatic. Extraocular eye muscles intact. Sclerae nonicteric. Mucous membranes are moist. NECK: Without adenopathy or JVD. ABDOMEN: Nontender. MUSCULOSKELETAL: The patient without significant scoliosis, kyphosis or lordosis. Upper extremity muscle strength judged to be 5/5 for the major muscle groups in the upper extremity. The patient continues to have pain and discomfort in the lower portion of his back with pain in the L4-L5 dermatomal distribution of his legs. IMPRESSION: 1. Chronic low back pain, L4-L5 dermatomal distribution. 2. Anxiety. Started to use BuSpar. 3. History of lumbar intervertebral disk with spondylosis. 4. Chronic intractable pain, treated with Lyrica. 5. Improved pain with amitriptyline and buprenorphine 2 mg t.i.d. RECOMMENDATIONS: We discussed treatment options with the patient. At this juncture, he feels medications are working relatively well. We will continue with the current medication regimen. A script for his medications of buprenorphine 2 mg t.i.d. have been provided. The patient will also continue with amitriptyline 50 mg at bedtime. He will call us if he has any problems. He will use hydroxyzine 25 mg p.o. b.i.d. He feels overall that pain is about 70%-80% helped overall with his current regimen. We would like to thank you for letting us participate in his care. We hope he continues to improve. <ELECTRONICALLY SIGNED> By: Brittanie Wladen MD 03/07/20 0922 [id number]. Yoni Walden MD /[facility]
== END ==
LOC: M.PC 04:11
DX: M54.5 Low back pain (principal); F41.9 Anxiety disorder, unspecified; G89.29 Other chronic pain; F11.20 Opioid dependence, uncomplicated; Z88.0 Allergy status to penicillin; Z88.5 Allergy status to narcotic agent; Z79.899 Other long term (current) drug therapy; Z87.39 Personal history of other diseases of the musculoskeletal system and connective tissue

== ENCOUNTER → 2020-03-24 | Outpatient (CLI) | payer OTHER ==
--- NOTE | ~2020-03-24 | PAINCON ---
[address] [address] PAIN MANAGEMENT CONSULTATION Name: MAXINEDEXTER Phillips Room: [facility].#: [id number] Admission: 03/24/20 Attend Phys: Brittanie Walden MD Discharge: Date of : 87 Report #: [id number] THIS REPORT FOR: //name// cc: Darin Rose Vincent R. DO ~ THIS REPORT FOR: //name// CC: Brittanie Rose DATE OF SERVICE: 03/24/2020 CHIEF COMPLAINT: "The baby is fine and everybody is doing okay." HISTORY: The patient is a 35-year-old gentleman who has been followed in the pain clinic. He suffers from back pain. He has undergone epidural steroid injections in the past. His pain persisted. He is now on a regimen that seems to be working relatively well. He has a new baby. Things are going well with his family. He is staying at home. He is aware of the COVID-19 pandemic. He feels his medications are helpful and would like to continue their use. ALLERGIES: PENICILLIN, BUTRANS PATCH CAUSE SKIN IRRITATION. CURRENT MEDICATIONS: Buprenorphine 5 mg sublingual t.i.d., Mobic 15 mg, Lyrica 50 mg, Elavil 25 mg at bedtime. PAIN CLINIC ASSESSMENT AND PQRS: 1. The patient is not being treated for osteoarthritis or rheumatoid arthritis. 2. Height 5 feet 10 inches, weight 185 pounds, BMI is 27. 3. Vital signs: Blood pressure 126/76, heart rate 68, respiratory rate 16, room air saturation 98%, temperature 97.5. 4. Pain intensity, 10/16. 5. Fall history. The patient has not fallen in the last 3 months. 6. Blood thinner. The patient is not on a blood thinning medication. 7. Hypertension. The patient is not being treated for hypertension. 8. Opioids greater than 6 weeks. The patient receives medication from one source, the pain clinic. 9. Risk assessment tool, low for opioid use. 10. Recreational drug use. The patient denies. 11. Tobacco. The patient denies. 12. Alcohol. The patient denies use of alcoholic beverages. PHYSICAL EXAMINATION: GENERAL: The patient is a well-developed, well-nourished, white male. Appears his stated age. He is alert and oriented x 3. His affect is appropriate[place] [address] PAIN MANAGEMENT CONSULTATION Name: DEXTER GOODMAN Room: [facility]#: [id number] Admission: 03/24/20 Attend Phys: Brittanie Walden MD Discharge: Date of : 87 Report #: [id number] HEENT: Normocephalic, atraumatic. Extraocular eye muscles intact. Sclerae nonicteric. Mucous membranes are moist. NECK: Without adenopathy or JVD. MUSCULOSKELETAL: The patient without significant scoliosis, kyphosis or lordosis. Upper extremity muscle strength judged to be 5/5 for the major muscle groups in the upper extremity. The patient continues to have pain and discomfort in lower portion of his back, but much improved in the L4-L5 dermatomal distribution down into his legs. IMPRESSION: 1. Chronic low back pain, L4-L5 distribution. 2. Anxiety, started on BuSpar. 3. History of lumbar intervertebral disk with spondylosis. 4. Chronic intractable pain, treated with Lyrica. 5. Improved pain with amitriptyline and buprenorphine 2 mg t.i.d. RECOMMENDATIONS: We discussed treatment options with the patient. At this juncture, we will continue with his medications. They appear to be working relatively well. He rates his pain as 1/10. He is able to think clearly. He is happy with his new baby. He will continue with the medications. He keeps his medications out of the hands of his younger daughter. He will call us if he has any concerns. The patient is trying to do yoga. Overall, he feels things are working out well. A script for his medications has been rewritten for amitriptyline 50 mg at bedtime, hydroxyzine 25 mg b.i.d. p.r.n., amitriptyline 50 mg at bedtime. By: [id number]. Yoni Walden MD /CHARIS
== END ==
LOC: M.PC 08:00
PROVIDERS: ATTEND Anesthesiology Pain Medicine
DX: M54.5 Low back pain (principal); F41.9 Anxiety disorder, unspecified; G89.29 Other chronic pain; Z88.8 Allergy status to other drugs, medicaments and biological substances; Z87.39 Personal history of other diseases of the musculoskeletal system and connective tissue; Z79.899 Other long term (current) drug therapy

== ENCOUNTER → 2020-04-21 | Outpatient (CLI) | payer OTHER ==
--- NOTE | 2020-04-27 08:36 | PAINCON ---
[facility] [address] [place] [address] PAIN MANAGEMENT CONSULTATION Name: DEXTER GOODMAN Room: [facility]#: [id number] Admission: 04/21/20 Attend Phys: Brittanie Walden MD Discharge: Date of : 86 Report #: [id number] THIS REPORT FOR: //name// cc: Darin Rose Vincent R. DO ~ THIS REPORT FOR: //name// CC: Brittanie Rose DATE OF SERVICE: 04/21/2020 CHIEF COMPLAINT: The medications working well. Still having some low back pain. HISTORY: The patient is a 35-year-old gentleman who has been followed in the pain clinic because of chronic pain. He feels his medications are working relatively well. He is not having any significant problems. He has continued to enjoy improvement in his pain control. His and family are doing well. His oldest child is going to daycare. His new baby is doing well. They are concerned about the COVID-19 pandemic. He would like to continue with his medications. He is able to think clearly. There were no complications in its use. ALLERGIES: PENICILLIN, BUTRANS PATCH CAUSE SKIN IRRITATION. CURRENT MEDICATIONS: Buprenorphine 5 mg sublingual t.i.d., Mobic 15 mg, Lyrica 50 mg, Elavil 25 mg at bedtime. PAIN CLINIC ASSESSMENT AND PQRS: 1. The patient is not being treated for osteoarthritis or rheumatoid arthritis. 2. Height 5 feet 10 inch, weight 184 pounds, BMI is 26.6. 3. Vital Signs: Blood pressure 126/76, heart rate 68, respiratory rate 16, room air saturation 98%. 4. Pain intensity 0 today. 5. Temperature 97.9. 6. Fall history: The patient has not fallen in the last 3 months. 7. Blood thinner. The patient is not on a blood thinning medication. 8. Hypertension. The patient is not being treated for hypertension. 9. Opioids greater than 6 weeks. The patient received medication from the pain clinic. 10. Risk assessment tool, low for opioid use. 11. Recreational drug use. The patient denies. 12. Tobacco: The patient denies. 13. Alcohol. The patient denies [place] [address] PAIN MANAGEMENT CONSULTATION Name: DEXTER GOODMAN Room: [facility]#: [id number] Admission: 04/21/20 Attend Phys: Brittanie Walden MD Discharge: Date of : 86 Report #: [id number] PHYSICAL EXAMINATION: GENERAL: The patient is a well-developed, well-nourished white male. Appears his stated age. He is alert and oriented x 3. His affect is appropriate. Speech is fluent. HEENT: Normocephalic, atraumatic. Extraocular eye muscles intact. Sclerae are nonicteric. Mucous membranes are moist. NECK: Without adenopathy or JVD. HEART: Regular rate. ABDOMEN: Nontender. EXTREMITIES: Upper extremity muscle strength 5/5 for the major muscle groups in the upper extremity. Lower extremity muscle strength 5/5. The patient does have some pain and discomfort when he has it in the L4-L5 dermatomal distribution in his low back and down into his legs. IMPRESSION: 1. Chronic low back pain, L4-L5 distribution. 2. Anxiety, started on BuSpar. 3. History of lumbar intervertebral disk problem with spondylosis. 4. Chronic anterior intractable pain, treated with Lyrica. 5. Improved pain with amitriptyline and buprenorphine 2 tablets 2 mg t.i.d. RECOMMENDATIONS: We discussed treatment options with the patient. At this juncture, things are going relatively well. We will continue with his medications. He finds that these medications enable him to get engage in activities of daily living. He is able to think clearly. He is aware that opioid medications can cause addiction. He is showing no signs of addictive behavior. A script for his medications are amitriptyline, gabapentin, and hydroxyzine, have been provided and sent to the pharmacy. A script for buprenorphine 2 mg t.i.d. have been provided. The patient will call us if he has any concerns. We would like to thank you for letting us participate in his care. We hope he continues to improve. <ELECTRONICALLY SIGNED> By: Brittanie Walden MD 04/27/20 0836 [id number]. Yoni Walden MD /[facility]
== END ==
LOC: M.PC 04:06
PROVIDERS: ATTEND Anesthesiology Pain Medicine
DX: M54.5 Low back pain (principal); G89.29 Other chronic pain; F41.9 Anxiety disorder, unspecified; Z87.39 Personal history of other diseases of the musculoskeletal system and connective tissue; Z79.899 Other long term (current) drug therapy

== ENCOUNTER → 2020-05-19 | Outpatient (CLI) | payer OTHER ==
--- NOTE | 2020-06-07 15:37 | PAINCON ---
[facility] [address] [place] [address] PAIN MANAGEMENT CONSULTATION Name: MAXINEDEXTER Phillips [id number] Admission: 05/19/20 Attend Phys: Brittanie Walden MD Discharge: Date of : 87 Report #: [id number] THIS REPORT FOR: //name// cc: Darin Rose Vincent R. DO ~ THIS REPORT FOR: //name// CC: Brittanie Rose DO DATE OF SERVICE: 05/19/2020 CHIEF COMPLAINT: "Medications are still working well." HISTORY: The patient is a 35-year-old gentleman who has been followed in the pain clinic. As you recall, he has a history of low back and leg pain. He has undergone epidural steroid injections. He finds that at this point his current medication regimen with buprenorphine and Mobic continue to work quite well. He has returned for renewal of his medications. He and his are doing well. As you may recall, he has a daughter and recently had a new baby girl. They still have concerns regarding COVID-19. He feels his medications are working well and has returned today for renewal of them. ALLERGIES: PENICILLIN, BUTRANS PATCH CAUSE SKIN IRRITATION. CURRENT MEDICATIONS: Buprenorphine 2 mg sublingual t.i.d., Mobic 15 mg, Lyrica 50 mg, and Elavil 25 mg at bedtime. PAIN CLINIC ASSESSMENT/PQRS: 1. The patient is not being treated for osteoarthritis or rheumatoid arthritis. 2. Height 5 feet 11 inches, weight 177 pounds, BMI is 25. 3. Vital signs: Blood pressure 123/76, heart rate 62, respiratory rate 16, room air saturation 97%, temperature 97. 4. Pain intensity score 0/10. 5. Fall history: The patient has not fallen in the last 3 months. 6. Blood thinner. The patient is not on a blood thinning medication. 7. Hypertension. The patient is not being treated for hypertension. 8. Opioids greater than 6 weeks. The patient receives medication from the pain clinic. 9. Risk assessment tool, low for opioid use. 10. Recreational drug use. The patient denies. 11. Tobacco: The patient denies. 12. Alcohol: The patient denies use of alcoholic beverages. PHYSICAL EXAMINATION: [place] [address] PAIN MANAGEMENT CONSULTATION Name: DEXTER GOODMAN Room: [facility]#: [id number] Admission: 05/19/20 Attend Phys: Brittanie Walden MD Discharge: Date of : 87 Report #: [id number] GENERAL: The patient is a well-developed, well-nourished white male. Appears his stated age. He is alert and oriented x 3. His affect is appropriate. Speech is fluent. HEENT: Normocephalic, atraumatic. Extraocular eye muscles intact. Sclerae nonicteric. Mucous membranes are moist. NECK: Without adenopathy or JVD. HEART: Regular rate. ABDOMEN: Nontender. EXTREMITIES: Upper extremity muscle strength judged to be 5/5 for the major muscle groups in the upper extremity. Lower extremity muscle strength judged to be 5/5. The patient has pain and discomfort when problematic in the L4-L5 dermatomal distribution, which radiates down into his legs. IMPRESSION: 1. History of chronic low back pain at L4-L5 distribution. 2. Anxiety, has been started on BuSpar. 3. History of lumbar intervertebral disk problem with spondylosis. 4. Chronic anterior intractable pain, treated with Lyrica. 5. Improved pain with amitriptyline and buprenorphine 2 mg tablets t.i.d. RECOMMENDATIONS: We discussed treatment options with the patient. At this juncture, he feels that things are going reasonably well. He feels that the medication continues to be helpful. He does not have any problems with the medication. He notes that his pain can be more problematic if he does too much bending or lifting. Finds his medications in conjunction with heat and rest are helpful. He is aware that some medications can become addicted. He has not shown any signs of addiction. We will continue with his medications of amitriptyline, gabapentin, and the patient will also take hydroxyzine. A script for his medications has been forwarded to his pharmacy. He will call us if he has any concerns. <ELECTRONICALLY SIGNED> By: Brittanie Walden MD 06/07/20 1537 [id number] Walden MD /CHARIS
== END ==
LOC: M.PC 01:43
PROVIDERS: ATTEND Anesthesiology Pain Medicine
DX: Z87.39 Personal history of other diseases of the musculoskeletal system and connective tissue (principal); F41.9 Anxiety disorder, unspecified; G89.29 Other chronic pain; Z88.8 Allergy status to other drugs, medicaments and biological substances; Z79.899 Other long term (current) drug therapy

== ENCOUNTER → 2020-06-16 | Outpatient (CLI) | payer OTHER ==
--- NOTE | 2020-06-30 08:38 | PAINCON ---
[address] [address] PAIN MANAGEMENT CONSULTATION Name: MAXINEDEXTER Phillips Room: [facility].#: [id number] Admission: 06/16/20 Attend Phys: Brittanie Walden MD Discharge: Date of : 87 Report #: [id number] THIS REPORT FOR: //name// cc: Darin Rose Vincent R. DO ~ THIS REPORT FOR: //name// CC: YAMILET Rose DATE OF SERVICE: 06/16/2020 CHIEF COMPLAINT: "Medications are still working well." HISTORY: The patient is a 35-year-old gentleman who has been followed in the pain clinic. As you recall, he continues to have pain and discomfort in the low back and leg area. He feels that his current medication has been working reasonably well. It has been helpful for numerous months. He has a new baby. He and his are doing well. They have been sheltering in because of COVID-19. He has returned today for renewal of his medications. ALLERGIES: PENICILLIN, BUTRANS PATCH CAUSE SKIN IRRITATION. CURRENT MEDICATIONS: Buprenorphine 2 mg sublingual t.i.d., Mobic 15 mg, Lyrica 5 mg, Elavil 25 mg at bedtime. PAIN CLINIC ASSESSMENT/PQRS: 1. The patient is not being treated for osteoarthritis or rheumatoid arthritis. 2. Height 5 feet 11 inches, weight 177 pounds, BMI is 25. 3. Blood pressure 132/80, heart rate 69, respiratory rate 16, room air saturation 97%, temperature 98.4. 4. Pain intensity is 0 today. The patient's location of pain in his low back area. He is doing relatively well 5. Fall history: The patient has not fallen in the last 3 months. 6. Blood thinner: The patient is not on a blood thinning medication. 7. Hypertension: The patient is not being treated for hypertension. 8. Opioids greater than 6 weeks: The patient receives medication from [facility], the pain clinic. 9. Risk assessment tool: Low for opioid use. 10. Recreational drug use: The patient denies. 11. Tobacco: The patient denies. 12. Alcohol. The patient denies use of alcoholic beverages. PHYSICAL EXAMINATION: GENERAL: The patient is a well-developed, well-[place] [address] PAIN MANAGEMENT CONSULTATION Name: MAXINEDEXTER Jacqueline Room: [facility]#: [id number] Admission: 06/16/20 Attend Phys: Brittanie Walden MD Discharge: Date of : 87 Report #: [id number] his stated age. He is alert and oriented x 3. His affect is appropriate. Speech is fluent. HEENT: Normocephalic, atraumatic. Extraocular eye muscles intact. Sclerae nonicteric. Mucous membranes are moist. The patient is wearing a mask covering. NECK: Without adenopathy or JVD. HEART: Regular rate. ABDOMEN: Nontender. LUNGS: Clear. EXTREMITIES: Upper extremity muscle strength judged to be 5/5 for the major muscle groups in the upper extremity. Lower extremity muscle strength judged to be 5/5 for the major muscle groups in the lower extremity. The patient has pain and discomfort when it is problematic in the L4-L5 dermatomal distribution with radiation down into his legs. IMPRESSION: 1. History of chronic pain in the low back area at L4-L5 distribution. 2. Anxiety. The patient has started using BuSpar. 3. History of lumbar intervertebral disk problems with spondylosis. 4. Chronic anterior intractable pain, treated with Lyrica. 5. Improved pain control with amitriptyline and buprenorphine 2 mg t.i.d. sublingual. RECOMMENDATION: The patient has been doing well for about the last 9 months on this regimen. At this juncture, we will have the patient follow up in 2-month intervals. He is not having any problems with the medication. He feels that things are going relatively well. He rates his pain as a 0/10 today. He does note that he is somewhat limited by certain activities, with bending and lifting can exacerbate his discomfort. He uses medications as well as heat. He will call us if he has any concerns. The patient is aware that these medications can be problematic for her children and keeps his medications per his report in a guarded area. We would like to thank you for letting us participate in his care. We hope he continues to improve. <ELECTRONICALLY SIGNED> By: Brittanie Walden MD 06/30/20 0838 [id number]. Yoni Walden MD /[facility]
== END ==
LOC: M.PC 08:19
PROVIDERS: ATTEND Anesthesiology Pain Medicine
DX: M54.5 Low back pain (principal); F41.9 Anxiety disorder, unspecified; G89.29 Other chronic pain; Z87.39 Personal history of other diseases of the musculoskeletal system and connective tissue; Z88.8 Allergy status to other drugs, medicaments and biological substances; Z79.899 Other long term (current) drug therapy

== ENCOUNTER → 2020-12-08 | Outpatient (CLI) | payer OTHER | LOC: M.PC 07:44 | PROVIDERS: ATTEND Anesthesiology Pain Medicine | DX: M54.5 Low back pain (principal); G89.29 Other chronic pain; F41.9 Anxiety disorder, unspecified; Z87.39 Personal history of other diseases of the musculoskeletal system and connective tissue; Z88.8 Allergy status to other drugs, medicaments and biological substances; Z79.899 Other long term (current) drug therapy ==

== ENCOUNTER → 2021-02-02 | Outpatient (CLI) | payer OTHER | LOC: M.PC 07:59 | PROVIDERS: ATTEND Anesthesiology Pain Medicine | DX: G89.29 Other chronic pain (principal); M54.5 Low back pain; F41.9 Anxiety disorder, unspecified; M47.816 Spondylosis without myelopathy or radiculopathy, lumbar region ==

== ENCOUNTER → 2021-03-30 | Outpatient (CLI) | payer OTHER | LOC: M.PC 08:10 | PROVIDERS: ATTEND Anesthesiology Pain Medicine | DX: G89.29 Other chronic pain (principal); M54.5 Low back pain; I10 Essential (primary) hypertension; F41.8 Other specified anxiety disorders; Z68.25 Body mass index [BMI] 25.0-25.9, adult; Z88.0 Allergy status to penicillin; Z79.891 Long term (current) use of opiate analgesic; Z79.899 Other long term (current) drug therapy; Z87.39 Personal history of other diseases of the musculoskeletal system and connective tissue ==